=== PATIENT | male | born 1980 | race Caucasian/White ===

== ENCOUNTER → 2020-12-29 | Outpatient (CLI) | payer BC ==
--- NOTE | 2020-12-30 07:27 | US ---
EXAMINATION TYPE: US gallbladder DATE OF EXAM: 12/29/2020 COMPARISON: NONE CLINICAL HISTORY: Cholecystitis K81.9,R10.84 Generalized Abd Pain. EXAM MEASUREMENTS: Liver Length: 15.9 cm Gallbladder Wall: 0.3 cm CBD: 0.5 cm Right Kidney: 10.9 x 6.9 x 6.9 cm Pancreas: Obscured by bowel gas Liver: wnl Gallbladder: large mobile stone with shadowing, measures 2.0 cm. Evidence for sonographic Lira's sign: Yes CBD: wnl Right Kidney: No hydronephrosis or masses seen IMPRESSION: 1. Cholelithiasis with positive Lira's sign. No gallbladder wall thickening or pericholecystic flui d. Clinical consideration for acute/chronic cholecystitis is recommended. 2. The pancreas is obscured by overlying bowel gas.
== END | disposition home or self-care (01) ==
LOC: RADUSWWP 16:45
PROVIDERS: ATTEND Family Medicine
DX: K80.20 Calculus of gallbladder without cholecystitis without obstruction (principal)
CPT/HCPCS: 76705

== ENCOUNTER → 2023-09-08 | Outpatient (CLI) | payer BC ==
--- NOTE | 2023-09-08 18:51 | XR ---
EXAMINATION TYPE: XR pelvis AP view DATE OF EXAM: 09/08/2023 CLINICAL HISTORY: pain TECHNIQUE: Single view the pelvis is submitted. FINDINGS: No evidence for fracture, dislocation or bony lesion. Joint spaces are well-preserved. S I joints appear symmetric. IMPRESSION: 1. No acute fracture or dislocation seen. ICD 10 NO FRACTURE, INITIAL EVALUATION
--- NOTE | 2023-09-08 18:52 | XR ---
EXAMINATION TYPE: XR lumbar spine 2 or 3V DATE OF EXAM: 09/08/2023 CLINICAL HISTORY: pain TECHNIQUE: Three views of the lumbar spine are submitted. COMPARISON: None. FINDINGS: There are 5 lumbar type vertebral bodies identified. The lumbar spine shows satisfactory alignment w ithout evidence of acute fracture or dislocation. Vertebral body heights are within normal limits. Disc spaces are within normal limits. The overlying soft tissue appears unremarkable. IMPRESSION: No acute fracture or dislocation is seen in the lumbar spine. ICD 10 NO FRACTURE, INITIAL EVALUATION
--- NOTE | 2023-09-08 19:00 | XR ---
EXAMINATION TYPE: XR sacrum coccyx DATE OF EXAM: 09/08/2023 CLINICAL HISTORY: pain TECHNIQUE: Three views of the sacrum and coccyx are submitted. COMPARISON: None Sacral alae appear symmetric. No evidence for fracture or bony lesion. Sacroiliac joints are within normal limits. Visualized coccygeal segments are free of fracture or lesion. IMPRESSION: Normal study
--- NOTE | 2023-09-08 19:02 | XR ---
EXAMINATION TYPE: XR abdomen 1V DATE OF EXAM: 09/08/2023 COMPARISON: NONE HISTORY: Pain TECHNIQUE: Single supine KUB image of the abdomen is obtained FINDINGS: Small bowel demonstrates no evidence for dilatation or air fluid levels. Gas and fecal material is seen in non-distended colon. No convincing evidence for pneumoperitoneum. No unusual calcifications. The lung bases are clear. The osseous structures are intact. IMPRESSION: 1. Overall nonobstructive bowel gas pattern. Mild fecal stasis.
== END | disposition home or self-care (01) ==
LOC: RADXRMAIN 14:33
PROVIDERS: ATTEND Family Medicine
DX: M54.50 Low back pain, unspecified (principal); K56.41 Fecal impaction
CPT/HCPCS: 72100; 72170; 72220; 74018

== ENCOUNTER 2023-09-10 10:02 | Inpatient (IN) | payer BC ==
--- NOTE | 2023-09-10 10:45 | ED ---
General Adult HPI - General Chief complaint: GI Bleed Stated complaint: rectal bleeding/vomiting Time Seen by Provider: 09/10/23 10:20 Source: patient, RN notes reviewed, old records reviewed Mode of arrival: ambulatory Limitations: no limitations - History of Present Illness Initial comments: This is a 43-year-old male who presents to the emergency department complaining of lower back pain in the area of the coccyx. Patient states it is very tender to palpation or some bleeding in that area. Patient states he has become very nauseous lately and has been only eating very little because it upsets his stomach he thinks it secondary to the pain. Patient has any fever or chills. Patient states his primary medical care doctor gave him Keflex. Patient states he has not been getting any better and actually feels worse. Patient denies any upper abdominal pain. Patient states is a little lower abdominal discomfort but not bad. Patient denies any diarrhea recently. - Related Data Home Medications Medication Instructions Recorded Confirmed Amoxicillin/Potassium Clav 1 each PO Q12HR 08/16/14 08/18/14 [Augmentin 875-125 Tablet] Chlorhexidine Gluconate [Periogard] 15 ml PO BID 08/16/14 08/18/14 Fluticasone Propionate [Flonase] 1 spray EA NOSTRIL BID 08/16/14 08/18/14 Sodium Chloride [[place]] 104 ml NS BID 08/16/14 08/18/14 Previous Rx's Medication Instructions Recorded Omeprazole 40 mg PO AC-BRKFST #90 cap 08/24/14 Omeprazole [PriLOSEC] 40 mg PO AC-BRKFST #90 cap 08/24/14 Allergies Allergy/AdvReac Type Severity Reaction Status Date / Time No Known Allergies Allergy Verified 09/10/23 10:23 Review of Systems ROS Statement: Those systems with pertinent positive or pertinent negative responses have been documented in the HPI. ROS Other: All systems not noted in ROS Statement are negative. Past Medical History Past Medical History: No Reported History History of Any Multi-Drug Resistant Organisms: None Reported Past Surgical History: Orthopedic Surgery Additional Past Surgical History / Comment(s): ORAL SURGERY; LEFT FEMUR - MISSY Past Psychological History: No Psychological Hx Reported Smoking Status: Never smoker Past Alcohol Use History: None Reported, Occasional Past Drug Use History: None Reported - Past Family History Mother Family Medical History: Unable to Obtain General Exam - General Exam Comments Initial Comments: GENERAL: Patient is well-developed and well-nourished. Patient is nontoxic and well- hydrated and is in moderate distress. ENT: Neck is soft and supple. No significant lymphadenopathy is noted. Oropharynx is clear. Moist mucous membranes. Neck has full range of motion without eliciting any pain. EYES: The sclera were anicteric and conjunctiva were pink and moist. Extraocular movements were intact and pupils were equal round and reactive to light. Eyelids were unremarkable. PULMONARY: Unlabored respirations. Good breath sounds bilaterally. No audible rales rhonchi or wheezing was noted. CARDIOVASCULAR: There is a regular rate and rhythm without any murmurs gallops or rubs. ABDOMEN: Soft and nontender with normal bowel sounds. Mild suprapubic abdominal pain RECTAL: On rectal exam. Patient has a perirectal abscess that is draining profusely are a is very tender and mildly erythematous SKIN: Skin is clear with no lesions or rashes and otherwise unremarkable. NEUROLOGIC: Patient is alert and oriented x3. Cranial nerves II through XII are grossly intact. Motor and sensory are also intact. Normal speech, volume and content. Symmetrical smile. MUSCULOSKELETAL: Normal extremities with adequate strength and full range of motion. LYMPHATICS: No significant lymphadenopathy is noted PSYCHIATRIC: Normal psychiatric evaluation. Limitations: no limitations Course Vital Signs 09/10/23 09/10/23 10:17 10:39 Temperature 98.2 F Pulse Rate 96 92 Respiratory 18 20 Rate Blood Pressure 128/91 131/76 O2 Sat by Pulse 98 96 Oximetry Medical Decision Making - Medical Decision Making Was pt. sent in by a medical professional or institution (, [facility], [employer], urgent care, hospital, or fci...) When possible be specific @ -No Did you speak to anyone other than the patient for history (EMS, parent, family, police, friend...)? What history was obtained from this source @ -No Did you review nursing and triage notes (agree or disagree)? Why? @ -I reviewed and agree with nursing and triage notes Were old charts reviewed (outside hosp., previous admission, EMS record, old EKG, old radiological studies, urgent care reports/EKG's, fci records)? Report findings @ -No old charts were reviewed Differential Diagnosis (chest pain, altered mental status, abdominal pain women, abdominal pain men, vaginal bleeding, weakness, fever, dyspnea, syncope, headache, dizziness, GI bleed, back pain, seizure, CVA, palpatations, mental health, musculoskeletal)? @ -Perirectal abscess, cellulitis, coccyx fracture, pilonidal cyst, pilonidal abscess, this is not an all-inclusive list EKG interpreted by me (3pts min.). @ -As above X-rays interpreted by me (1pt min.). @ -None done CT interpreted by me (1pt min.). @ -CT scan showed an area of abscess measuring 5 x 3 cm U/S interpreted by me (1pt. min.). @ -None done What testing was considered but not performed or refused? (CT, X-rays, U/S, labs)? Why? @ -None What meds were considered but not given or refused? Why? @ -None Did you discuss the management of the patient with other professionals (professionals i.e. , PA, [employer], lab, RT, psych nurse, social media job titles, quality control assistant, teacher, strike warfare/missile systems officer, casework supervisor)? Give summary @ -I spoke with Dr. Tovar he agreed admit the patient admitted the patient really getting worse Was smoking cessation discussed for >3mins.? @ -No Was critical care preformed (if so, how long)? @ -No Were there social determinants of health that impacted care today? How? (Homelessness, low income, unemployed, alcoholism, drug addiction, transportation, low edu. Level, literacy, decrease access to med. care, residential, rehab)? @ -No Was there de-escalation of care discussed even if they declined (Discuss DNR or withdrawal of care, Hospice)? DNR status @ -No What co-morbidities impacted this encounter? (DM, HTN, Smoking, COPD, CAD, Cancer, CVA, ARF, Chemo, Hep., AIDS, mental health diagnosis, sleep apnea, mor bid obesity)? @ -None Was patient admitted / discharged? Hospital course, mention meds given and rou te, prescriptions, significant lab abnormalities, going to OR and other pertinent info. @ -Patient came to the emergency department with a slightly draining abscess in the pilonidal area. I drained a copious amount of pus from that area and I took cultures. I started the patient on Unasyn. I spoke with Dr. Tovar and he agreed to admit the patient admitted the patient motivating worse Undiagnosed new problem with uncertain prognosis? @ -No Drug Therapy requiring intensive monitoring for toxicity (Heparin, Nitro, Insulin, Cardizem)? @ -No Were any procedures done? @ -No Diagnosis/symptom? @ -Pilonidal abscess Acute, or Chronic, or Acute on Chronic? @ -Acute Uncomplicated (without systemic symptoms) or Complicated (systemic symptoms)? @ -Complicated Side effects of treatment? @ -No Exacerbation, Progression, or Severe Exacerbation? @ -No Poses a threat to life or bodily function? How? (Chest pain, [place], [place], pneumonia, PE, COPD, DKA, ARF, appy, cholecystitis, CVA, Diverticulitis, Homicidal, Suicidal, threat to staff... and all critical care pts) @ -Yes this can lead to further infection sepsis and endorgan dysfunction - Lab Data Result diagrams: 09/10/23 10:48 09/10/23 10:48 Lab Results 09/10/23 09/10/23 Range/Units 10:48 10:48 WBC 9.2 (3.8-10.6) k/uL RBC 4.59 (4.30-5.90) m/uL Hgb 14.5 (13.0-17.5) gm/dL Hct 42.8 (39.0-53.0) % MCV 93.3 (80.0-100.0) fL MCH 31.5 (25.0-35.0) pg MCHC 33.8 (31.0-37.0) g/dL RDW 11.9 (11.5-15.5) % Plt Count 199 (150-450) k/uL MPV 8.0 Neutrophils % 80 % Lymphocytes % 10 % Monocytes % 6 % Eosinophils % 2 % Basophils % 1 % Neutrophils # 7.4 (1.3-7.7) k/uL Lymphocytes # 0.9 L (1.0-4.8) k/uL Monocytes # 0.6 (0-1.0) k/uL Eosinophils # 0.2 (0-0.7) k/uL Basophils # 0.0 (0-0.2) k/uL Sodium 136 L (137-145) mmol/L Potassium 3.7 (3.5-5.1) mmol/L Chloride 102 (98-107) mmol/L Carbon Dioxide 21 L (22-30) mmol/L Anion Gap 13 mmol/L BUN 17 (9-20) mg/dL Creatinine 0.51 L (0.66-1.25) mg/dL Est GFR (CKD-EPI)AfAm >90 (>60 ml/min/1.73 sqM) Est GFR (CKD-EPI)NonAf >90 (>60 ml/min/1.73 sqM) Glucose 86 (74-99) mg/dL Calcium 9.0 (8.4-10.2) mg/dL Total Bilirubin 0.5 (0.2-1.3) mg/dL AST 22 (17-59) U/L ALT 13 (4-49) U/L Alkaline Phosphatase 69 (38-126) U/L Total Protein 6.9 (6.3-8.2) g/dL Albumin 3.6 (3.5-5.0) g/dL Disposition Clinical Impression: Pilonidal abscess Disposition: ADMITTED IP TO THIS HOSP Referrals: Sebastián Merrill DO [Primary Care Provider] - 1-2 days Time of Disposition: 12:52
[2023-09-10] MEDS: SODIUM CHLORIDE 0.9% 500 ML 500 ML IV ONE (11:27)
[2023-09-10] MEDS: SODIUM CHLORIDE 0.9% 1,000 ML IV ONE ×2 (11:27→15:10)
[2023-09-10] MEDS: KETOROLAC 15 MG/ML 1 ML VIAL IVP STA (11:27)
[2023-09-10] MEDS: HYDROmorphone 0.5 MG/0.5 ML SYRINGE IVP STA (11:27)
[2023-09-10] MEDS: AMPICILLIN-SULBACTAM 3 GM in SODIUM CHLORIDE 0.9% 100 ML IVPB STA (11:28)
[2023-09-10 11:49] LABS: Basophils % (A) 1 %; Eosinophils # (A) 0.2 k/uL (0-0.7); Eosinophils % (A) 2 %; HCT 42.8 % (39.0-53.0); HGB 14.5 gm/dL (13.0-17.5); Lymphocytes # (A) 0.9 k/uL (1.0-4.8); Lymphocytes % (A) 10 %; MCH 31.5 pg (25.0-35.0); MCHC 33.8 g/dL (31.0-37.0); MCV 93.3 fL (80.0-100.0); Monocytes # (A) 0.6 k/uL (0-1.0); Monocytes % (A) 6 %; Neutrophils # (A) 7.4 k/uL (1.3-7.7); Neutrophils % (A) 80 %; Platelet Count 199 k/uL (150-450); RBC 4.59 m/uL (4.30-5.90); RDW 11.9 % (11.5-15.5); WBC 9.2 k/uL (3.8-10.6)
[2023-09-10 12:17] LABS: ALT 13 U/L (4-49); AST 22 U/L (17-59); African American GFR (CKD) >90 (>60 ml/min/1.73 sqM); Albumin 3.6 g/dL (3.5-5.0); Alkaline Phosphatase 69 U/L (38-126); Anion Gap 13 mmol/L; Blood Urea Nitrogen 17 mg/dL (9-20); Carbon Dioxide 21 mmol/L (22-30); Chloride 102 mmol/L (98-107); Glucose 86 mg/dL (74-99); Non-African American GFR(CKD) >90 (>60 ml/min/1.73 sqM); Potassium 3.7 mmol/L (3.5-5.1); Sodium 136 mmol/L (137-145); Total Bilirubin 0.5 mg/dL (0.2-1.3); Total Protein 6.9 g/dL (6.3-8.2)
--- NOTE | 2023-09-10 12:28 | CT ---
EXAMINATION TYPE: CT pelvis w con DATE OF EXAM: 09/10/2023 COMPARISON: None HISTORY: Abscess, rectal bleeding CT DLP: 1095.8 mGycm Automated exposure control for dose reduction was used. CONTRAST: Performed with IV Contrast, patient injected with 100 ml mL of Isovue 300.Contrast enhanced CT of the pelvis was performed. FINDINGS: Adjacent to the coccygeal segments is a phlegmonous area measuring 4.9 x 3.1 cm. No evidence for drai nable abscess at this time. There is subcutaneous edema compatible with cellulitis. No bone destructi on seen. No evidence of perirectal abscess at this time. No additional phlegmonous area is seen. With in the pelvis no evidence for mass or adenopathy. Fluid. Normal-appearing prostate. No inflammatory c hange of the visualized colon or small bowel. IMPRESSION: Adjacent to the coccygeal segments is a phlegmonous area measuring 4.9 x 3.1 cm. No evidence for drai nable abscess at this time. There is subcutaneous edema compatible with cellulitis. No bone destructi on seen.
[2023-09-10] MEDS ORDERED: ACETAMINOPHEN TAB 325 MG TAB PO PRN (16:32)
[2023-09-10] MEDS: ONDANSETRON 4 MG/2 ML VIAL IVP PRN (17:51)
[2023-09-10] MEDS: AMPICILLIN-SULBACTAM 3 GM in SODIUM CHLORIDE 0.9% 100 ML IVPB SCH (18:16)
[2023-09-11] MEDS: HYDROcodone/APAP 5-325MG 1 EACH TAB PO PRN (11:35)
--- NOTE | 2023-09-11 12:11 | P.GSHP ---
History of Present Illness H&P Date: 09/11/23 CHIEF COMPLAINT: Pain and swelling at the coccyx area HISTORY OF PRESENT ILLNESS: This is a 43-year-old male who reports a month ago he fell on his tailbone and since then he had increased pain, difficulty with walking and swelling in the area. The swelling and pain have worsened over the last week. He went to see his PCP they prescribed Keflex. Patient had no improvement in his discomfort. He reports having chills decreased appetite with vomiting. Patient has evidence of a pilonidal cyst. There has been some drainage from the area. He reports the drainage was initially bloody. Patient reports still having pain rated about a 5 out of 10. Patient had a pelvic CT scan that reported adjacent to the coccygeal segment is a phlegmonous area measuring 4.9 x 3.1 cm. No evidence for drainable abscess. There is subcutaneous edema compatible with cellulitis. No bone destruction seen. He reports having chills. Denies any fevers. Patient denies any prior history of a pilonidal cyst. Denies any history of diabetes. PAST MEDICAL HISTORY: See below PAST SURGICAL HISTORY: See below MEDICATIONS: See below ALLERGIES: See below SOCIAL HISTORY: No illicit drug use. REVIEW OF SYSTEMS: CONSTITUTIONAL: Denies fever or chills. HEENT: Denies blurred vision, vision changes, or eye pain. Denies hemoptysis CARDIOVASCULAR: Denies chest pain or pressure. RESPIRATORY: No shortness of breath. GASTROINTESTINAL: See HPI for pertinent findings HEMATOLOGIC: Denies bleeding disorders. GENITOURINARY: Denies any blood in urine or increased urinary frequency. SKIN: Denies pruitis. Denies rash. PHYSICAL EXAM: VITAL SIGNS: Reviewed GENERAL: Well-developed in no acute distress. HEENT: No sclera icterus. Extraocular movements grossly intact. Moist buccal mucosa. Head is atraumatic, normocephalic. No nasal drainage. ABDOMEN: Soft. Nondistended. Nontender NEUROLOGIC: Alert and oriented. Cranial nerves II through XII grossly intact. Buttocks: In the cleft of the buttocks patient has a small fluctuant area noted just left to the crease of the buttocks. Mild erythema. Purulent bloody drainage noted on bandage. Left buttocks induration noted LABORATORY DATA: WC 9.2 Hgb 14.5 platelets 199 Sodium 136 potassium 3.7 creatinine 0.51 IMAGING: CT scan as stated above ASSESSMENT: 1. Pilonidal cyst PLAN: -Patient scheduled for incision and drainage of pilonidal cyst today with Dr. Tovar -Keep patient NPO -Continue antibiotics -Continue supportive care Physician Catalytic Case Operator note has been reviewed by physician. Signing provider agrees with the documented findings, assessment, and plan of care. I have personally seen and examined the patient, reviewed the SIGN BUILDER SUPERVISOR /PAs history, exam and MDM and agree with the assessment and plan as written. Based on total visit time, I have performed more than 50% of the visit. As above: On exam patient has a pilonidal abscess. Will proceed with incision and drainage pilonidal abscess at this time. Anticipate patient being discharged tomorrow. Follow-up as outpatient. Past Medical History Past Medical History: No Reported History History of Any Multi-Drug Resistant Organisms: None Reported Past Surgical History: Orthopedic Surgery Additional Past Surgical History / Comment(s): ORAL SURGERY; LEFT FEMUR - MISSY Past Anesthesia/Blood Transfusion Reactions: No Reported Reaction Past Psychological History: No Psychological Hx Reported Smoking Status: Never smoker Past Alcohol Use History: None Reported, Occasional Past Drug Use History: None Reported - Past Family History Mother History Unknown: Yes Family Medical History: Thyroid Disorder Medications and Allergies Home Medications Medication Instructions Recorded Confirmed Type Cephalexin [Keflex] 500 mg PO Q12HR 09/10/23 09/10/23 History Allergies Allergy/AdvReac Type Severity Reaction Status Date / Time No Known Allergies Allergy Verified 09/10/23 15:58 Surgical - Exam Vital Signs Pulse Resp BP Pulse Ox 96 18 128/91 98 09/10/23 10:17 09/10/23 10:17 09/10/23 10:17 09/10/23 10:17 Results - Labs 09/10/23 10:48 09/10/23 10:48 Abnormal Lab Results - Last 24 Hours (Table) 09/10/23 09/10/23 Range/Units 10:48 10:48 Lymphocytes # 0.9 L (1.0-4.8) k/uL Sodium 136 L (137-145) mmol/L Carbon Dioxide 21 L (22-30) mmol/L Creatinine 0.51 L (0.66-1.25) mg/dL Diabetes panel 09/10/23 Range/Units 10:48 Sodium 136 L (137-145) mmol/L Potassium 3.7 (3.5-5.1) mmol/L Chloride 102 (98-107) mmol/L Carbon Dioxide 21 L (22-30) mmol/L BUN 17 (9-20) mg/dL Creatinine 0.51 L (0.66-1.25) mg/dL Glucose 86 (74-99) mg/dL Calcium 9.0 (8.4-10.2) mg/dL AST 22 (17-59) U/L ALT 13 (4-49) U/L Alkaline Phosphatase 69 (38-126) U/L Total Protein 6.9 (6.3-8.2) g/dL Albumin 3.6 (3.5-5.0) g/dL Calcium panel 09/10/23 Range/Units 10:48 Calcium 9.0 (8.4-10.2) mg/dL Albumin 3.6 (3.5-5.0) g/dL Pituitary panel 09/10/23 Range/Units 10:48 Sodium 136 L (137-145) mmol/L Potassium 3.7 (3.5-5.1) mmol/L Chloride 102 (98-107) mmol/L Carbon Dioxide 21 L (22-30) mmol/L BUN 17 (9-20) mg/dL Creatinine 0.51 L (0.66-1.25) mg/dL Glucose 86 (74-99) mg/dL Calcium 9.0 (8.4-10.2) mg/dL Adrenal panel 09/10/23 Range/Units 10:48 Sodium 136 L (137-145) mmol/L Potassium 3.7 (3.5-5.1) mmol/L Chloride 102 (98-107) mmol/L Carbon Dioxide 21 L (22-30) mmol/L BUN 17 (9-20) mg/dL Creatinine 0.51 L (0.66-1.25) mg/dL Glucose 86 (74-99) mg/dL Calcium 9.0 (8.4-10.2) mg/dL Total Bilirubin 0.5 (0.2-1.3) mg/dL AST 22 (17-59) U/L ALT 13 (4-49) U/L Alkaline Phosphatase 69 (38-126) U/L Total Protein 6.9 (6.3-8.2) g/dL Albumin 3.6 (3.5-5.0) g/dL
[2023-09-11] MEDS: IV FLUID CONTINUATION 1,000 ML IV ONE (15:01)
[2023-09-11] MEDS: fentaNYL (PF) 50 MCG/1 ML VIAL IVP ONE ×2 (15:01→15:15)
[2023-09-11] MEDS: LACTATED RINGERS 1,000 ML IV ONE ×2 (15:01→15:22)
[2023-09-11] MEDS: ONDANSETRON 4 MG/2 ML VIAL IVP ONE (15:05)
[2023-09-11] MEDS: DEXAMETHASONE SOD PHOSPHATE 4 MG/ML 1 ML VIAL IVP ONE (15:05)
[2023-09-11] MEDS ORDERED: KETOROLAC 30 MG/ML 1 ML VIAL ONE (15:11)
[2023-09-11] MEDS ORDERED: fentaNYL (PF) 50 MCG/ML 2 ML AMP ONE (15:11)
[2023-09-11] MEDS ORDERED: ePHEDrine 50 MG/ML 1 ML VIAL ONE (15:11)
[2023-09-11] MEDS ORDERED: MIDAZOLAM 2 MG/2 ML VIAL ONE (15:11)
[2023-09-11] MEDS ORDERED: PROPOFOL 10 MG/ML 20 ML VIAL IV ONE (15:11)
[2023-09-11] MEDS ORDERED: SUCCINYLCHOLINE CHLORIDE 200 MG/10 ML VIAL IV ONE (15:11)
[2023-09-11] MEDS ORDERED: LIDOCAINE 1% INJ 10MG/ML (20 ML MDV) ONE (15:11)
[2023-09-11] MEDS: BUPIVACAINE (PF) 0.25% 10 ML VIAL SQ ONE (15:37)
--- NOTE | 2023-09-11 15:52 | P.OP ---
Date of Procedure: 09/11/23 Procedure(s) Performed: PREOPERATIVE DIAGNOSIS: Pilonidal abscess POSTOPERATIVE DIAGNOSIS: Same PROCEDURE: Incision and drainage pilonidal abscess SURGEON: La EBL: 25 cc ANESTHESIA: General COMPLICATIONS: None OPERATIVE PROCEDURE: Patient placed under general anesthesia then placed in the left cubitus position. The pilonidal region was prepped and draped sterilely. A vertical incision was made just to the left of the midline using the scalpel. This measured 1.5 to 2 cm in length. Entrance into a subcutaneous abscess cavity took place. Abscess cavity measured 5 x 3 cm. Cultures were taken. Area irrigated with saline. Wound was then packed with 1/2 inch iodophor gauze. Sterile outer dressings applied. DISPOSITION: Stable to recovery room
[2023-09-11] MEDS: HYDROmorphone 0.5 MG/0.5 ML SYRINGE IVP ONE (16:46)
[2023-09-11] MEDS: droPERidol 5 MG/2 ML VIAL IVP ONE (16:59)
[2023-09-12] MEDS: HYDROmorphone 1 MG/ML 1 ML SYRINGE IVP PRN (08:11)
[2023-09-12] MEDS: DEXAMETHASONE SOD PHOSPHATE 4 MG/ML 1 ML VIAL IVP SCH (14:31)
[2023-09-12] MEDS: PANTOPRAZOLE 40 MG/10 ML VIAL IVP SCH (14:31)
[2023-09-12] MEDS: SODIUM CHLORIDE 0.9% 1,000 ML IV SCH (14:32)
[2023-09-12] MEDS: SUCRALFATE 1 GM TAB PO SCH (14:32)
[2023-09-12 15:27] LABS: HCT 39.1 % (39.0-53.0); MCH 31.1 pg (25.0-35.0); MCHC 33.3 g/dL (31.0-37.0); MCV 93.4 fL (80.0-100.0); Mean Platelet Volume 7.7; Platelet Count 204 k/uL (150-450); RBC 4.19 m/uL (4.30-5.90); RDW 11.7 % (11.5-15.5); WBC 8.1 k/uL (3.8-10.6)
--- NOTE | 2023-09-12 15:52 | XR ---
EXAMINATION TYPE: XR abdomen 2V DATE OF EXAM: 09/12/2023 COMPARISON: 09/08/2023 HISTORY: Vomiting TECHNIQUE: One view abdominal series FINDINGS: The osseous structures are intact. The bowel gas pattern is nonspecific. Surgical clips right upper quadrant. There is an air-fluid level. Retained debris throughout the colon correlate for constipatio n. Lung bases are clear. Left hemidiaphragm elevation. IMPRESSION: 1. Nonspecific abdomen. Correlate for constipation. Single air-fluid level in the upper abdomen is n onspecific could be associated with an ileus or enteritis. Partial obstruction felt less likely, joseluis elate clinically.
[2023-09-12] MEDS: chlorproMAZINE 25 MG/ML 2 ML AMP IM ONE (16:11)
--- NOTE | 2023-09-12 16:17 | P.CONS ---
History of Present Illness - Reason for Consult Consult date: 09/12/23 Medical management Requesting physician: Qasim Tovar - Chief Complaint Status post fall, increased coccyx pain - History of Present Illness This is a 43-year-old gentleman presented to the ER status post fall approximately 1 month ago ,complaining of coccyx edema and pain, affecting his ambulation . Placed on oral Keflex per PCP, developed nausea and vomiting. Denies diarrhea. Pain and edema worsened, along with chills and decreased appetite, prompting him to proceed to the ER. Presented with evidence of a draining pilonidal cyst. Pelvic CT completed, reported adjacent to the coccygeal segment is a phlegmonous area measuring 4.9 x 3.1 cm. No evidence for drainable abscess. There is subcutaneous edema compatible with cellulitis. No bone destruction seen. IV fluid hydration, antibiotics were initiated. evaluated by general surgery and underwent I&D yesterday. Afebrile, normal WBC. Function stable Review of Systems ROS Statement: Those systems with pertinent positive or pertinent negative responses have been documented in the HPI. ROS Other: All systems not noted in ROS Statement are negative. Past Medical History Past Medical History: No Reported History History of Any Multi-Drug Resistant Organisms: None Reported Past Surgical History: Orthopedic Surgery Additional Past Surgical History / Comment(s): ORAL SURGERY; LEFT FEMUR - MISSY Past Anesthesia/Blood Transfusion Reactions: No Reported Reaction Past Psychological History: No Psychological Hx Reported Smoking Status: Never smoker Past Alcohol Use History: None Reported, Occasional Past Drug Use History: None Reported - Past Family History Mother History Unknown: Yes Family Medical History: Thyroid Disorder Medications and Allergies Home Medications Medication Instructions Recorded Confirmed Type Cephalexin [Keflex] 500 mg PO Q12HR 09/10/23 09/10/23 History Allergies Allergy/AdvReac Type Severity Reaction Status Date / Time No Known Allergies Allergy Verified 09/10/23 15:58 Physical Exam Vitals: Vital Signs Temp Pulse Pulse Resp BP Pulse Ox 09/12/23 14:22 98.0 F 91 18 116/80 97 09/12/23 07:00 98.1 F 71 20 139/78 99 09/12/23 02:51 98.2 F 61 16 115/73 97 09/11/23 20:06 97.5 F L 94 15 120/84 96 09/11/23 18:28 74 117/79 96 09/11/23 18:13 82 126/88 97 09/11/23 17:58 82 135/88 100 09/11/23 17:43 97.6 F 76 16 116/75 99 09/11/23 17:02 87 18 119/76 95 09/11/23 16:47 83 14 118/76 93 L 09/11/23 16:32 92 20 102/58 98 09/11/23 16:17 92 14 135/68 98 09/11/23 16:02 97.3 F L 95 18 140/76 100 Intake and Output 09/12/23 09/12/23 09/12/23 06:59 14:59 22:59 Intake Total 618 Balance 618 Intake: Oral 618 Other: Voiding Method Toilet # Voids 2 2 PHYSICAL EXAM: VITAL SIGNS: [As above] GENERAL: Sitting up in bed, no acute distress, anxious HEENT: Normocephalic, atraumatic conjunctivae normal. eyes normal. NECK: Supple, no JVD. No thyroid enlargement. No LNs CARDIOVASCULAR: S1, S2 regular.. No murmur RESPIRATION: Unlabored, equal air entry breath sounds diminished in the bases. No rhonchi or crackles. No bronchial breathing. ABDOMEN: Soft, nontender . No guarding. no masses palpable. No guarding, no rigidity bowel sounds heard. LEGS: No edema. no swelling PSYCHIATRY: Alert and oriented X3, mood and affect normal. NERVOUS SYSTEM: Cranial N 2-12 grossly normal. No focal deficits. Strength and sensation grossly intact.. Skin: Warm and dry, coccyx dressing clean dry and intact, tender, status post I&D. Results CBC & Chem 7: 09/12/23 14:53 09/10/23 10:48 Labs: Abnormal Lab Results - Last 24 Hours (Table) 09/12/23 Range/Units 14:53 RBC 4.19 L (4.30-5.90) m/uL Microbiology - Last 24 Hours (Table) 09/10/23 10:48 Blood Culture - Preliminary Blood 09/10/23 10:48 Gram Stain - Preliminary Rectum Wound Culture - Preliminary Gram Neg Bacilli Assessment and Plan Assessment: Pilonidal abscess, aerobic wound culture of 09/10/2023 reporting gram-negative bacilli, status post I&D, deep cultures obtained. Obesity, BMI 30 Plan: Continue on current medication regimen ,monitoring and symptomatic treatment. Thorazine added for intractable nausea and vomiting. PPI, Carafate, Zofran in place. Wound care/pain management, DVT prophylaxis as per primary. Blood, aerobic and anaerobic wound cultures in progress, with initial wound culture currently reporting gram-negative bacilli. Continue on antibiotics. Increase ambulation as tolerated. Thank you for the consult. The impression and plan of care has been dictated as directed. : I performed a history and examination of this patient, discussed the same with the dictator. I agree with the dictator's note ,documented as a scribe. Any additional findings or plans will be noted.
--- NOTE | 2023-09-12 16:33 | P.PN ---
Subjective Progress Note Date: 09/12/23 CHIEF COMPLAINT: Pilonidal abscess HISTORY OF PRESENT ILLNESS: Patient is postop day #1 status post incision and drainage of pilonidal abscess. Patient reports that decrease pressure and pain. He has had some drainage in the area. Patient has had multiple episodes of vomiting. The emesis did have blood and evidence of old blood. And then it became coffee-ground emesis. He reports having an episode of vomiting yesterday evening as well. He reports hiccups. Patient reports having an episode of blood in his emesis at home. Last EGD was in 2015. Afebrile. WBC 8.1 hemoglobin 13 platelets 204. Vital stable PHYSICAL EXAM: VITAL SIGNS: Reviewed. GENERAL: Well-developed in no acute distress. ABDOMEN: Soft. Nondistended. NEUROLOGIC: Alert and oriented. Cranial nerves II through XII grossly intact. Buttocks: Packing in place. Some serosanguineous, purulent drainage noted on bandage. Erythema on the left buttocks decreasing. Area of induration decreasing ASSESSMENT: 1. Pilonidal abscess status post incision and drainage 2. Coffee-ground emesis PLAN: -Downgrade diet to n.p.o. -Check abdominal x-ray due to vomiting and constipation -Patient scheduled for EGD on with Dr. Tovar -Start IV Protonix twice a day -Add Carafate 1 g twice a day -Scheduled Decadron ordered for vomiting -Continue antibiotics -Patient can shower -Continue local wound care with Aquacel silver rope Physician Motor Grader Operator note has been reviewed by physician. Signing provider agrees with the documented findings, assessment, and plan of care. I have personally seen and examined the patient, reviewed the EDGE KITTER /PAs history, exam and MDM and agree with the assessment and plan as written. Based on total visit time, I have performed more than 50% of the visit. As above: Patient has had episodes of nausea and vomiting. Some evidence of blood in the emesis. Feels better currently. Continue antiacid therapy. Likely will proceed with upper endoscopy during this hospital stay. Begin dress ing changes. Continue antibiotics. Follow cultures. Objective - Vital Signs Vital signs: Vital Signs Temp 98.1 F 09/12/23 07:00 Pulse 71 09/12/23 07:00 Resp 20 09/12/23 07:00 BP 139/78 09/12/23 07:00 Pulse Ox 99 09/12/23 07:00 FiO2 Intake & Output 09/11/23 09/12/23 09/12/23 18:59 06:59 18:59 Intake Total 800 618 Output Total 25 Balance 775 618 Intake: IV 800 Oral 618 Output: Emesis 0 Estimated Blood Loss 25 Other: Voiding Method Toilet Toilet Toilet # Voids 2 - Labs CBC & Chem 7: 09/12/23 14:53 09/10/23 10:48 Labs: Microbiology - Last 24 Hours (Table) 09/10/23 10:48 Blood Culture - Preliminary Blood 09/10/23 10:48 Gram Stain - Preliminary Rectum Wound Culture - Preliminary Gram Neg Bacilli
[2023-09-12] MEDS ORDERED: SUCRALFATE 1 GM TAB PO SCH (17:30)
[2023-09-13 08:47] LABS: HCT 38.8 % (39.6-50.0); HGB 12.8 g/dL (13.0-17.0); MCV 91.1 FL (80.0-97.0); Mean Platelet Volume 10.3 FL (9.5-12.2); NRBC Per 100 WBC 0 X 10*3/uL (0.00-0.01); Platelet Count 244 X 10*3/uL (140-440); RBC 4.26 X 10*6/uL (4.40-5.60); RDW 11.7 % (11.5-14.5); WBC 6.84 X 10*3/uL (4.50-10.00)
[2023-09-13] MEDS ORDERED: DEXTROSE 50% SYRINGE 50 ML IVP PRN ×2 (09:08)
[2023-09-13 09:21] LABS: Blood Urea Nitrogen 8.4 mg/dL (9.0-27.0); Calcium 8.6 mg/dL (8.7-10.3); Chloride 102 mmol/L (96-109); Glucose 115 mg/dL (70-110); Potassium 4.2 mmol/L (3.5-5.5); Sodium 138 mmol/L (135-145)
--- NOTE | 2023-09-13 09:30 | P.PN ---
Subjective Progress Note Date: 09/13/23 History of Present Illness 09/12/23 This is a 43-year-old gentleman presented to the ER status post fall approximately 1 month ago ,complaining of coccyx edema and pain, affecting his ambulation . Placed on oral Keflex per PCP, developed nausea and vomiting. Denies diarrhea. Pain and edema worsened, along with chills and decreased appetite, prompting him to proceed to the ER. Presented with evidence of a draining pilonidal cyst. Pelvic CT completed, reported adjacent to the coccygeal segment is a phlegmonous area measuring 4.9 x 3.1 cm. No evidence for drainable abscess. There is subcutaneous edema compatible with cellulitis. No bone destruction seen. IV fluid hydration, antibiotics were initiated. evaluated by general surgery and underwent I&D yesterday. Afebrile, normal WBC. Function stable 09/13/2023 Currently maintained on IV fluid hydration ,Unasyn. Wound culture collected on 09/10 finalized last night, reporting Klebsiella pneumonia, E. coli/ESBL, Enterococcus faecalis. ID consulted. Wound culture collected on reporting gram-negative bacilli. Afebrile, normal WBC. Denies chest pain, palpitations or shortness of breath. Maintaining O2 sats in the high 90s to 100% on room air. Yesterday having intractable nausea and vomiting, hiccups- Thoraz ine added to med regimen. He later had coffee-ground emesis. Maintained on IV Protonix, Carafate. Abdominal x-ray completed yesterday reported nonspecific abdomen, correlate for constipation, single air-fluid level in the upper abdomen nonspecific could be associated with an ileus or enteritis partial obstruction felt less likely .Passing flatus this morning, reports last bowel movement Monday. Nausea improved with no further emesis since this later in the afternoon yesterday, scheduled for EGD . No tachycardia, hemoglobin 12.8, platelets 244. Continues on IV push Decadron. Reports decreased pain. Objective - Vital Signs Vital signs: Vital Signs Temp 97.4 F L 09/13/23 07:24 Pulse 57 L 09/13/23 07:24 Resp 20 09/13/23 07:24 BP 117/75 09/13/23 07:24 Pulse Ox 100 09/13/23 07:24 FiO2 Intake & Output 09/12/23 09/13/2309/13/24 18:59 06:59 18:59 Intake Total 618 Balance 618 Intake: Oral 618 Other: Voiding Method Toilet Toilet # Voids 2 3 - Exam PHYSICAL EXAM: VITAL SIGNS: [As above] GENERAL: Alert and oriented x 3, sitting up in bed, no acute distress HEENT: Normocephalic, atraumatic conjunctivae normal. NECK: Supple, no JVD. CARDIOVASCULAR: S1, S2 regular.. No murmur RESPIRATION: Unlabored, equal air entry breath sounds diminished in the bases. No rhonchi or crackles. No bronchial breathing. ABDOMEN: Soft, nondistended, nontender . No guarding. no masses palpable. No guarding, no rigidity bowel sounds heard. LEGS: No edema. no swelling NERVOUS SYSTEM: Cranial N 2-12 grossly normal. No focal deficits. Strength and sensation grossly intact. Skin: Warm and dry, coccyx dressing serosanguineous, mild erythema surrounding, tender, status post I&D. Microbiology 09/10/23 10:48 Blood Blood Culture - Preliminary 09/11/23 15:41 Other - Other Gram Stain - Preliminary 09/11/23 15:41 Other - Other Wound Culture - Preliminary Gram Neg Bacilli 09/10/23 10:48 Rectum Gram Stain - Final 09/10/23 10:48 Rectum Wound Culture - Final Klebsiella pneumoniae Escherichia coli Enterococcus faecalis - Labs CBC & Chem 7: 09/13/23 06:09 09/13/23 06:09 Labs: Abnormal Lab Results - Last 24 Hours (Table) 09/12/23 Range/Units 14:53 RBC 4.19 L (4.30-5.90) m/uL Microbiology - Last 24 Hours (Table) 09/10/23 10:48 Blood Culture - Preliminary Blood 09/11/23 15:41 Gram Stain - Preliminary Other - Other Wound Culture - Preliminary Gram Neg Bacilli 09/10/23 10:48 Gram Stain - Final Rectum Wound Culture - Final Klebsiella pneumoniae Escherichia coli Enterococcus faecalis Assessment and Plan Assessment: Pilonidal abscess, aerobic wound culture of 09/10/2023 reporting reporting Klebsiella pneumonia, E. coli/ESBL, Enterococcus faecalis. 09/11/2023 reporting gram-negative bacilli, status post I&D Coffee-ground emesis Constipation Possible ileus or enteritis reported per x-ray Obesity, BMI 30 Plan: Continue on current medication regimen ,monitoring and symptomatic treatment. Infectious disease consulted regarding antibiotics regimen. Dulcolax suppository ordered. Wound care as per general surgery. maintained on dexamethasone, NovoLog sliding scale ordered, close monitoring of Accu-Cheks.EGD scheduled for . The impression and plan of care has been dictated as directed. : I performed a history and examination of this patient, discussed the same with the dictator. I agree with the dictator's note ,documented as a scribe. Any additional findings or plans will be noted.
[2023-09-13] MEDS: ERTAPENEM 1 GM in SODIUM CHLORIDE 0.9% 50 ML IVPB SCH (12:11)
[2023-09-13 13:16] LABS: Glucose,Whole Blood 83 mg/dL (70-110)
--- NOTE | 2023-09-13 15:47 | P.PN ---
Subjective Progress Note Date: 09/13/23 CHIEF COMPLAINT: Pilonidal abscess HISTORY OF PRESENT ILLNESS: Patient is postop day #2 status post incision and drainage of pilonidal abscess. Patient reports less pain and pressure at the abscess site. He did shower and packing was changed. He had multiple episodes of vomiting yesterday. No further vomiting since 5 PM. The emesis yesterday did have some coffee-ground consistency. Last BM was Monday. He is having flatus. Afebrile. Vital stable. Hemoglobin stable 12.8 culture with ESBL infe ctious disease has been consulted. Abdominal x-ray nonspecific. Correlate for constipation. Single air-fluid level in the upper abdomen is nonspecific could be associated with ileus or enteritis. PHYSICAL EXAM: VITAL SIGNS: Reviewed. GENERAL: Well-developed in no acute distress. ABDOMEN: Soft. Nondistended. NEUROLOGIC: Alert and oriented. Cranial nerves II through XII grossly intact. Buttocks: Packing in place. Some serosanguineous, purulent drainage noted on bandage. Erythema on the left buttocks decreasing. Area of induration decreasing ASSESSMENT: 1. Pilonidal abscess status post incision and drainage 2. Coffee-ground emesis 3. Constipation PLAN: -Patient scheduled for EGD tomorrow with Dr. Tovar -Continue local wound care -Keep patient n.p.o. -Continue IV Protonix, Carafate and Decadron -Antibiotics per ID service -Continue IV fluids -Dulcolax suppository ordered Physician Acoustical Material Worker note has been reviewed by physician. Signing provider agrees with the documented findings, assessment, and plan of care. Objective - Vital Signs Vital signs: Vital Signs Temp 97.7 F 09/13/23 14:00 Pulse 76 09/13/23 14:00 Resp 20 09/13/23 14:00 BP 114/71 09/13/23 14:00 Pulse Ox 98 09/13/23 14:00 FiO2 Intake & Output 09/12/23 09/13/23 09/13/23 18:59 06:59 18:59 Intake Total 618 Balance 618 Intake: Oral 618 Other: Voiding Method Toilet Toilet Toilet # Voids 2 3 - Labs CBC & Chem 7: 09/13/23 06:09 09/13/23 06:09 Labs: Abnormal Lab Results - Last 24 Hours (Table) 09/13/23 09/13/23 Range/Units 06:09 06:09 RBC 4.26 L (4.40-5.60) X 10*6/uL Hgb 12.8 L (13.0-17.0) g/dL Hct 38.8 L (39.6-50.0) % Anion Gap 13.00 H (4.00-12.00) mmol/L BUN 8.4 L (9.0-27.0) mg/dL Creatinine 0.4 L (0.6-1.5) mg/dL BUN/Creatinine Ratio 21.00 H (12.00-20.00) Ratio Glucose 115 H (70-110) mg/dL Calcium 8.6 L (8.7-10.3) mg/dL Microbiology - Last 24 Hours (Table) 09/10/23 10:48 Blood Culture - Preliminary Blood 09/11/23 15:41 Gram Stain - Preliminary Other - Other Wound Culture - Preliminary Gram Neg Bacilli 09/10/23 10:48 Gram Stain - Final Rectum Wound Culture - Final Klebsiella pneumoniae Escherichia coli Enterococcus faecalis
[2023-09-13] MEDS: INSULIN ASPART (NovoLOG) 100 UNIT/ML VIAL SQ SCH (16:14)
[2023-09-13] MEDS: chlorproMAZINE 25 MG TAB PO PRN (17:15)
[2023-09-13] MEDS: bisacodyL 10 MG SUPP RECTAL STA (17:16)
[2023-09-13 18:59] LABS: Glucose,Whole Blood 112 mg/dL (70-110)
[2023-09-13 21:31] LABS: Glucose,Whole Blood 109 mg/dL (70-110)
--- NOTE | 2023-09-13 21:40 | P.CONS ---
History of Present Illness - Reason for Consult Consult date: 09/13/23 Wound culture, ESBL Requesting physician: Kimberly Ely - Chief Complaint Lower back pain x few days - History of Present Illness Patient is a 43-year-old male with no significant past medical history presenting to the ER 3 days ago for evaluation of lower back pain in the area of the coccyx patient symptom has been going on for few days denies any history of any trauma patient was complaining of pain to be more of a sharp and throbbing moderate intensity without radiation and the patient noticed to be able to be tender and did have some bleeding from it patient was also complaining of feeling nauseated not tolerating his diet but no vomiting and some epigastric discomfort but no diarrhea patient was evaluated by general surgery has been diagnosed with a pilonidal abscess in this patient with status post incision and drainage of the pilonidal abscess on 09/11/2023 patient has been treated with Zosyn culture growing we will get finalized with ESBL E. coli in addition to Klebsiella Enterococcus faecalis that has prompted this infectious disease consu ltation, patient currently denies having any fever or any chills and the patient denies any fever or presentation to the hospital denies any headache or URI symptoms no chest pain shortness of breath or cough did have some nausea and tolerating his diet no significant vomiting or diarrhea pain to the sacral area slightly decreased intensity. Patient did have white count of 9.2 creatinine 0.4 electrolytes are normal liver enzymes are normal., Cultures are positive for ESBL E. coli Klebsiella Ent erococcus faecalis Review of Systems Positive point and negatives has been mentioned in the HPI, complete review of systems was performed and all other systems are negative Past Medical History Past Medical History: No Reported History History of Any Multi-Drug Resistant Organisms: None Reported Past Surgical History: Orthopedic Surgery Additional Past Surgical History / Comment(s): ORAL SURGERY; LEFT FEMUR - MISSY Past Anesthesia/Blood Transfusion Reactions: No Reported Reaction Past Psychological History: No Psychological Hx Reported Smoking Status: Never smoker Past Alcohol Use History: None Reported, Occasional Past Drug Use History: None Reported - Past Family History Mother History Unknown: Yes Family Medical History: Thyroid Disorder Medications and Allergies Home Medications Medication Instructions Recorded Confirmed Type Ertapenem [INVanz] 1 gm IVPB Q24H #14 each 09/18/23 09/21/23 Rx HYDROcodone/APAP 5-325MG [Perley 1 tab PO Q6HR PRN 3 Days #12 tab 09/18/23 09/21/23 Rx 5-325] Baclofen [Lioresal] 5 mg PO TID 09/21/23 09/21/23 History Gabapentin [Neurontin] 300 mg PO TID PRN 09/21/23 09/21/23 History Ondansetron Odt [Zofran Odt] 4 mg PO TID 09/21/23 09/21/23 History Pantoprazole [Protonix] 40 mg PO DIRECTED 09/21/23 09/21/23 History Allergies Allergy/AdvReac Type Severity Reaction Status Date / Time No Known Allergies Allergy Verified 09/21/23 13:13 Physical Exam Vitals: Vital Signs Temp Pulse Resp BP Pulse Ox 09/13/23 07:24 97.4 F L 57 L 20 117/75 100 09/13/23 02:47 97.8 F 67 15 123/65 97 09/12/23 20:19 98.0 F 76 15 122/75 99 09/12/23 14:22 98.0 F 91 18 116/80 97 Intake and Output 09/12/23 09/13/23 09/13/23 22:59 06:59 14:59 Other: Voiding Method Toilet # Voids 1 3 GENERAL DESCRIPTION: Middle-aged male lying in bed, no distress. No tachypnea or accessory muscle of respiration use. HEENT: Shows Pallor , no scleral icterus. Oral mucous membrane is dry. No pharyngeal erythema or thrush NECK: Trachea central, no thyromegaly. LUNGS: Unlabored breathing. Clear to auscultation anteriorly. No wheeze or crackle. HEART: S1, S2, regular rate and rhythm. No loud murmur ABDOMEN: Soft, no tenderness , guarding or rigidity, no organomegaly EXTREMITIES: No edema of feet. SKIN: Patient did have a surgical wound to the sacral area with no slough tissue or any foul-smelling drainage NEUROLOGICAL: The patient is awake, alert, oriented x3, mood and affect normal. Results CBC & Chem 7: 09/17/23 06:48 09/17/23 06:48 Labs: Abnormal Lab Results - Last 24 Hours (Table) 09/12/23 09/13/23 09/13/23 Range/Units 14:53 06:09 06:09 RBC 4.19 L 4.26 L (4.30-5.90) m/uL Hgb 12.8 L (13.0-17.0) g/dL Hct 38.8 L (39.6-50.0) % Anion Gap 13.00 H (4.00-12.00) mmol/L BUN 8.4 L (9.0-27.0) mg/dL Creatinine 0.4 L (0.6-1.5) mg/dL BUN/Creatinine Ratio 21.00 H (12.00-20.00) Ratio Glucose 115 H (70-110) mg/dL Calcium 8.6 L (8.7-10.3) mg/dL Microbiology - Last 24 Hours (Table) 09/10/23 10:48 Blood Culture - Preliminary Blood 09/11/23 15:41 Gram Stain - Preliminary Other - Other Wound Culture - Preliminary Gram Neg Bacilli 09/10/23 10:48 Gram Stain - Final Rectum Wound Culture - Final Klebsiella pneumoniae Escherichia coli Enterococcus faecalis Assessment and Plan (1) Infection due to ESBL-producing Escherichia coli Status: Acute Code(s): A49.8 - OTHER BACTERIAL INFECTIONS OF UNSPECIFIED SITE; Z16.12 - EXTENDED SPECTRUM BETA LACTAMASE (ESBL) RESISTANCE SNOMED Code(s): 914520353 (2) Pilonidal abscess Status: Acute Code(s): L05.01 - PILONIDAL CYST WITH ABSCESS SNOMED Code(s): 910745327 Plan: 1patient presented hospital with pain to the lower back area and this patient has been diagnosed with a pilonidal cyst s/p I&D culture positive for ESBL E. coli Klebsiella and Enterococcus faecalis 2-Zosyn has been discontinued 3-patient started on Invanz 1 g daily 4-patient will need midline and a short course of IV Invanz on discharge We will follow on clinical condition and cultures to further adjust medication if needed Thank you for this consultation we will follow the patient along with you Dictation was produced using [employer] dictation software. please excuse any grammatical, word or spelling errors. Time with Patient: Greater than 30
[2023-09-14 02:06] LABS: Glucose,Whole Blood 107 mg/dL (70-110)
[2023-09-14 11:43] LABS: Basophils # (A) 0.01 X 10*3/uL (0.00-0.10); Basophils % (A) 0.1 %; Eosinophils # (A) 0 X 10*3/uL (0.04-0.35); Eosinophils % (A) 0 %; HCT 39.3 % (39.6-50.0); Lymphocytes # (A) 0.91 X 10*3/uL (0.90-5.00); Lymphocytes % (A) 10.1 %; MCH 30.2 pg (27.0-32.0); MCHC 33.1 g/dL (32.0-37.0); MCV 91.4 FL (80.0-97.0); Mean Platelet Volume 10.1 FL (9.5-12.2); Monocytes # (A) 0.32 X 10*3/uL (0.20-1.00); Monocytes % (A) 3.6 %; NRBC Per 100 WBC 0 X 10*3/uL (0.00-0.01); Neutrophils # (A) 7.69 X 10*3/uL (1.80-7.70); Neutrophils % (A) 85.8 %; Platelet Count 253 X 10*3/uL (140-440); RDW 11.9 % (11.5-14.5); WBC 8.97 X 10*3/uL (4.50-10.00)
--- NOTE | 2023-09-14 11:54 | P.PN ---
Subjective Progress Note Date: 09/14/23 History of Present Illness 09/12/23 This is a 43-year-old gentleman presented to the ER status post fall approximately 1 month ago ,complaining of coccyx edema and pain, affecting his ambulation . Placed on oral Keflex per PCP, developed nausea and vomiting. Denies diarrhea. Pain and edema worsened, along with chills and decreased appetite, prompting him to proceed to the ER. Presented with evidence of a draining pilonidal cyst. Pelvic CT completed, reported adjacent to the coccygeal segment is a phlegmonous area measuring 4.9 x 3.1 cm. No evidence for drainable abscess. There is subcutaneous edema compatible with cellulitis. No bone destruction seen. IV fluid hydration, antibiotics were initiated. evaluated by general surgery and underwent I&D yesterday. Afebrile, normal WBC. Function stable 09/13/2023 Currently maintained on IV fluid hydration ,Unasyn. Wound culture collected on 09/10 finalized last night, reporting Klebsiella pneumonia, E. coli/ESBL, Enterococcus faecalis. ID consulted. Wound culture collected on reporting gram-negative bacilli. Afebrile, normal WBC. Denies chest pain, palpitations or shortness of breath. Maintaining O2 sats in the high 90s to 100% on room air. Yesterday having intractable nausea and vomiting, hiccups- Thoraz ine added to med regimen. He later had coffee-ground emesis. Maintained on IV Protonix, Carafate. Abdominal x-ray completed yesterday reported nonspecific abdomen, correlate for constipation, single air-fluid level in the upper abdomen nonspecific could be associated with an ileus or enteritis partial obstruction felt less likely .Passing flatus this morning, reports last bowel movement Monday. Nausea improved with no further emesis since this later in the afternoon yesterday, scheduled for EGD . No tachycardia, hemoglobin 12.8, platelets 244. Continues on IV push Decadron. Reports decreased pain. 09/14/2023 NPO, dry heaves, no emesis, hiccups. Scheduled for EGD today. Denies chest pain, palpitations or shortness of breath. Evaluated by infectious disease with antibiotics adjusted to ertapenem secondary to ESBL. Afebrile, normal WBC. Objective - Vital Signs Vital signs: Vital Signs Temp 98.1 F 09/14/23 08:00 Pulse 60 09/14/23 08:00 Resp 16 09/14/23 08:00 BP 129/86 09/14/23 08:00 Pulse Ox 97 09/14/23 08:00 FiO2 Intake & Output 09/13/23 09/14/23 09/14/23 18:59 06:59 18:59 Other: Voiding Method Toilet Toilet # Voids 4 2 - Exam PHYSICAL EXAM: VITAL SIGNS: [As above] GENERAL: Alert and oriented x 3, sitting up in bed, no acute distress, anxious HEENT: Normocephalic, atraumatic conjunctivae normal. NECK: Supple, no JVD. CARDIOVASCULAR: S1, S2 regular.. No murmur RESPIRATION: Unlabored, equal air entry breath sounds diminished in the bases. ABDOMEN: Soft, nondistended, nontender . No guarding. no masses palpable. No guarding, no rigidity bowel sounds heard. LEGS: No edema. no swelling NERVOUS SYSTEM: Cranial N 2-12 grossly normal. No focal deficits. Strength and sensation grossly intact. Skin: Warm and dry, no rashes noted - Labs CBC & Chem 7: 09/14/23 07:34 09/13/23 06:09 Labs: Abnormal Lab Results - Last 24 Hours (Table) 09/13/23 09/14/23 Range/Units 18:57 07:34 RBC 4.30 L (4.40-5.60) X 10*6/uL Hct 39.3 L (39.6-50.0) % Eosinophils # 0 L (0.04-0.35) X 10*3/uL POC Glucose (mg/dL) 112 H (70-110) mg/dL Microbiology - Last 24 Hours (Table) 09/10/23 10:48 Blood Culture - Preliminary Blood 09/11/23 15:41 Gram Stain - Final Other - Other Wound Culture - Final Escherichia coli Assessment and Plan Assessment: Pilonidal abscess, aerobic wound culture of 09/10/2023 reporting reporting Klebsiella pneumonia, E. coli/ESBL, Enterococcus faecalis. 09/11/2023 reporting gram-negative bacilli, status post I&D Coffee-ground emesis Constipation Possible ileus or enteritis reported per x-ray Obesity, BMI 30 Plan: Continue on current medication regimen ,monitoring and symptomatic treatment. N.p.o., EGD pending .patient to receive Thorazine for hiccups.antibiotics as per infectious disease. wound care as per general surgery. The impression and plan of care has been dictated as directed. : I performed a history and examination of this patient, discussed the same with the dictator. I agree with the dictator's note ,documented as a scribe. Any additional findings or plans will be noted.
[2023-09-14 12:03] LABS: BUN/Creat Ratio 26.75 Ratio (12.00-20.00); Blood Urea Nitrogen 10.7 mg/dL (9.0-27.0); Calcium 8.7 mg/dL (8.7-10.3); Chloride 103 mmol/L (96-109); Glucose 102 mg/dL (70-110); Sodium 141 mmol/L (135-145)
[2023-09-14 12:32] LABS: Glucose,Whole Blood 86 mg/dL (70-110)
[2023-09-14] MEDS ORDERED: PROPOFOL 10 MG/ML 20 ML VIAL IV ONE (13:45)
[2023-09-14] MEDS: IV FLUID CONTINUATION 1,000 ML IV ONE (13:50)
[2023-09-14] MEDS: SODIUM CHLORIDE 0.9% 500 ML 500 ML IV ONE (14:16)
--- NOTE | 2023-09-14 15:41 | P.PN ---
Subjective Progress Note Date: 09/14/23 Principal diagnosis: Reason for follow-up is infected pilonidal cyst/abscess Patient is a 43-year-old male with no significant past medical history presenting to the ER for evaluation of lower back pain in the area of the coccyx, patient to be diagnosed with a pilonidal abscess status post surgical drainage cultures came back positive with ESBL E. coli Klebsiella Enterococcus faecalis prompting this infectious disease consultation. On today's evaluation that is 09/14/2023, the patient remains to be afebrile, patient is currently breathing comfortably on room air, the patient denies chest pain and no significant cough, patient has been complaining of some nausea decreased oral intake but no significant abdominal pain or diarrhea. Patient white count of 8.97, creatinine 0.4 Objective - Vital Signs Vital signs: Vital Signs Temp 98.1 F 09/14/23 08:00 Pulse 60 09/14/23 08:00 Resp 18 09/14/23 08:35 BP 129/86 09/14/23 08:00 Pulse Ox 97 09/14/23 08:00 FiO2 Intake & Output 09/13/23 09/14/23 09/14/23 18:59 06:59 18:59 Intake Total 300 Balance 300 Intake: IV 300 Other: Voiding Method Toilet Toilet Toilet # Voids 4 2 - Exam GENERAL DESCRIPTION: Middle-age male lying in bed in no distress RESPIRATORY SYSTEM: Unlabored breathing , decreased breath sounds at bases HEART: S1 S2 regular rate and rhythm , ABDOMEN: Soft , no tenderness EXTREMITIES: No edema feet - Labs CBC & Chem 7: 09/14/23 07:34 09/14/23 07:34 Labs: Abnormal Lab Results - Last 24 Hours (Table) 09/13/23 09/14/23 09/14/23 Range/Units 18:57 07:34 07:34 RBC 4.30 L (4.40-5.60) X 10*6/uL Hct 39.3 L (39.6-50.0) % Eosinophils # 0 L (0.04-0.35) X 10*3/uL Anion Gap 13.00 H (4.00-12.00) mmol/L Creatinine 0.4 L (0.6-1.5) mg/dL BUN/Creatinine Ratio 26.75 H (12.00-20.00) Ratio POC Glucose (mg/dL) 112 H (70-110) mg/dL Microbiology - Last 24 Hours (Table) 09/10/23 10:48 Blood Culture - Preliminary Blood 09/11/23 15:41 Gram Stain - Final Other - Other Wound Culture - Final Escherichia coli Assessment and Plan (1) Infection due to ESBL-producing Escherichia coli Current Visit: Yes Status: Acute Code(s): A49.8 - OTHER BACTERIAL INFECTIONS OF UNSPECIFIED SITE; Z16.12 - EXTENDED SPECTRUM BETA LACTAMASE (ESBL) RESISTANCE SNOMED Code(s): 742436417 (2) Pilonidal abscess Current Visit: Yes Status: Acute Code(s): L05.01 - PILONIDAL CYST WITH ABSCESS SNOMED Code(s): 276507211 Plan: 1patient presented hospital with pain to the lower back area and this patient has been diagnosed with a pilonidal cyst s/p I&D culture positive for ESBL E. coli Klebsiella and Enterococcus faecalis 2-patient to continue with Invanz 1 g daily, will order midline for outpatient IV antibiotic therapy Dictation was produced using [employer] dictation software. please excuse any gram matical, word or spelling errors. Time with Patient: Less than 30
--- NOTE | 2023-09-14 16:23 | P.PCN ---
Date of Procedure: 09/14/23 Procedure(s) Performed: Preoperative Dx: Intractable vomiting, reflux Postoperative Dx: Gastritis, small gastric polyp, moderate-sized hiatal hernia, distal esophagitis Procedure: EGD with Bx Anesthesia: Sedation Endoscopist: Dr. Tovar Specimens: Antrum, gastric polyp, distal esophagus Endoscopic Procedure: The patient was on the endoscopy table in the left decubitus position. The Olympus gastroscope was inserted into the oropharynx and passed under direct visualization to the region of the third portion of the duodenum. From that point the scope was slowly withdrawn inspecting all surfaces carefully. There were no neoplastic inflammatory or polypoid lesions throughout the duodenum. The pylorus was widely patent. The stomach was carefully inspected. There was some retained bilious fluid with some debris still present in the stomach. 200 cc was evacuated on initial insertion. A biopsy of the antrum took place to rule out H. pylori. A small polyp in the stomach was noted and biopsied. Retroflexion revealed a moderate-sized hiatal hernia. The GE junction was present 3 cm above the diaphragmatic hiatus. I would estimate 10% of the stomach was above the diaphragm. The patient's esophagus was inspected. The patient had significant reflux appearing esophagitis. Multiple biopsies were taken. The inflammation was enough that it was difficult to visualize and determine clinically if there was Gamez's esophagus. This involved the distal 8 cm or so of the esophagus. The proximal esophagus appeared normal. The patient was then taken to the recovery room in stable condition per anesthesia guidelines. Recommendations: Continue antiacid therapy. Check gastric emptying study given the patient's persistent vomiting and retained bilious liquid in the stomach. Continue antiemetics. Recommend GI evaluation when available.
[2023-09-14 17:33] LABS: Glucose,Whole Blood 125 mg/dL (70-110)
[2023-09-14 21:06] LABS: Glucose,Whole Blood 116 mg/dL (70-110)
--- NOTE | 2023-09-15 12:05 | P.PN ---
Subjective Progress Note Date: 09/15/23 History of Present Illness 09/12/23 This is a 43-year-old gentleman presented to the ER status post fall approximately 1 month ago ,complaining of coccyx edema and pain, affecting his ambulation . Placed on oral Keflex per PCP, developed nausea and vomiting. Denies diarrhea. Pain and edema worsened, along with chills and decreased appetite, prompting him to proceed to the ER. Presented with evidence of a draining pilonidal cyst. Pelvic CT completed, reported adjacent to the coccygeal segment is a phlegmonous area measuring 4.9 x 3.1 cm. No evidence for drainable abscess. There is subcutaneous edema compatible with cellulitis. No bone destruction seen. IV fluid hydration, antibiotics were initiated. evaluated by general surgery and underwent I&D yesterday. Afebrile, normal WBC. Function stable 09/13/2023 Currently maintained on IV fluid hydration ,Unasyn. Wound culture collected on 09/10 finalized last night, reporting Klebsiella pneumonia, E. coli/ESBL, Enterococcus faecalis. ID consulted. Wound culture collected on reporting gram-negative bacilli. Afebrile, normal WBC. Denies chest pain, palpitations or shortness of breath. Maintaining O2 sats in the high 90s to 100% on room air. Yesterday having intractable nausea and vomiting, hiccups- Thoraz ine added to med regimen. He later had coffee-ground emesis. Maintained on IV Protonix, Carafate. Abdominal x-ray completed yesterday reported nonspecific abdomen, correlate for constipation, single air-fluid level in the upper abdomen nonspecific could be associated with an ileus or enteritis partial obstruction felt less likely .Passing flatus this morning, reports last bowel movement Monday. Nausea improved with no further emesis since this later in the afternoon yesterday, scheduled for EGD . No tachycardia, hemoglobin 12.8, platelets 244. Continues on IV push Decadron. Reports decreased pain. 09/14/2023 NPO, dry heaves, no emesis, hiccups. Scheduled for EGD today. Denies chest pain, palpitations or shortness of breath. Evaluated by infectious disease with antibiotics adjusted to ertapenem secondary to ESBL. Afebrile, normal WBC. 09/15/2023 underwent EGD yesterday reporting gastritis, small gastric polyp, moderate size hiatal hernia, distal esophagitis. Maintained on antiacid and antiemetics, upper GI ordered. Continues on ertapenem as per ID. Afebrile. Objective - Vital Signs Vital signs: Vital Signs Temp 97.4 F L 09/15/23 08:00 Pulse 62 09/15/23 08:00 Resp 14 09/15/23 08:00 BP 125/73 09/15/23 08:00 Pulse Ox 99 09/15/23 08:00 FiO2 Intake & Output 09/14/23 09/15/23 09/15/23 18:59 06:59 18:59 Intake Total 300 Balance 300 Intake: IV 300 Other: Voiding Method Toilet Toilet Toilet # Voids 1 2 - Exam PHYSICAL EXAM: VITAL SIGNS: [As above] GENERAL: Alert and oriented x 3, sitting up in bed, no acute distress HEENT: Normocephalic, atraumatic conjunctivae normal. NECK: Supple, no JVD. CARDIOVASCULAR: S1, S2 regular.No murmur RESPIRATION: Unlabored, equal air entry breath sounds diminished in the bases. ABDOMEN: Soft, nondistended, nontender . No guarding. no masses palpable. No guarding, no rigidity,+BS LEGS: No edema. no swelling NERVOUS SYSTEM: Cranial N 2-12 grossly normal. No focal deficits. Strength and sensation grossly intact. Skin: Warm and dry, no rashes noted - Labs CBC & Chem 7: 09/14/23 07:34 09/14/23 07:34 Labs: Abnormal Lab Results - Last 24 Hours (Table) 09/14/23 09/14/23 09/14/23 Range/Units 07:34 17:31 21:04 Anion Gap 13.00 H (4.00-12.00) mmol/L Creatinine 0.4 L (0.6-1.5) mg/dL BUN/Creatinine Ratio 26.75 H (12.00-20.00) Ratio POC Glucose (mg/dL) 125 H 116 H (70-110) mg/dL Microbiology - Last 24 Hours (Table) 09/11/23 15:41 Anaerobic Culture - Final Other - Other Anaerobic Gm Negative Bacilli Assessment and Plan Assessment: Pilonidal abscess, aerobic wound culture of 09/10/2023 reporting reporting Klebsiella pneumonia, E. coli/ESBL, Enterococcus faecalis. 09/11/2023 reporting gram-negative bacilli, status post I&D Coffee-ground emesis, status post EGD reporting gastritis, small gastric polyp, moderate size hiatal hernia, distal esophagitis. Upper GI pending. Constipation Possible ileus or enteritis reported per x-ray Obesity, BMI 30 Plan: Continue on current medication regimen ,monitoring and symptomatic treatment. Upper GI pending .antibiotics as per infectious disease. wound care as per general surgery. General surgery recommending GI follow-up outpatient. The impression and plan of care has been dictated as directed. : I performed a history and examination of this patient, discussed the same with the dictator. I agree with the dictator's note ,documented as a scribe. Any additional findings or plans will be noted.
--- NOTE | 2023-09-15 12:23 | P.PN ---
Subjective Progress Note Date: 09/15/23 CHIEF COMPLAINT: Pilonidal abscess HISTORY OF PRESENT ILLNESS: Status post EGD revealing gastritis, small gastric polyp, moderate size hiatal hernia and distal esophagitis. Patient is postop day #3 status post incision and drainage of pilonidal abscess. Patient reports no pain or pressure currently at his buttocks. His main complaint is hiccups. He also will spit up with the hiccups. No vomiting. Reports no bowel movement. Does have discomfort across the epigastric area. Afebrile. PHYSICAL EXAM: VITAL SIGNS: Reviewed. GENERAL: Well-developed in no acute distress. ABDOMEN: Soft. Nondistended. NEUROLOGIC: Alert and oriented. Cranial nerves II through XII grossly intact. Buttocks: Packing fell out. minimal serosanguineous, purulent drainage noted on bandage. No erythema. Area is soft. ASSESSMENT: 1. Pilonidal abscess status post incision and drainage 2. Coffee-ground emesis status post EGD revealing gastritis, small gastric polyp, moderate size hiatal hernia and distal esophagitis 3. Hiccups PLAN: -Consult neuro for intractable hiccups -Upper GI ordered for further evaluation of patient's vomiting -Continue local wound care for the pilonidal abscess -Antibiotics per ID service -Okay to start regular diet after upper GI Physician Vice Provost note has been reviewed by physician. Signing provider agrees with the documented findings, assessment, and plan of care. Objective - Vital Signs Vital signs: Vital Signs Temp 97.4 F L 09/15/23 08:00 Pulse 62 09/15/23 08:00 Resp 14 09/15/23 08:00 BP 125/73 09/15/23 08:00 Pulse Ox 99 09/15/23 08:00 FiO2 Intake & Output 09/14/23 09/15/23 09/15/23 18:59 06:59 18:59 Intake Total 300 Balance 300 Intake: IV 300 Other: Voiding Method Toilet Toilet Toilet # Voids 1 2 - Labs CBC & Chem 7: 09/14/23 07:34 09/14/23 07:34 Labs: Abnormal Lab Results - Last 24 Hours (Table) 09/14/23 09/14/23 Range/Units 17:31 21:04 POC Glucose (mg/dL) 125 H 116 H (70-110) mg/dL Microbiology - Last 24 Hours (Table) 09/11/23 15:41 Anaerobic Culture - Final Other - Other Anaerobic Gm Negative Bacilli
[2023-09-15 12:45] LABS: Glucose,Whole Blood 87 mg/dL (70-110)
--- NOTE | 2023-09-15 13:03 | FL ---
EXAMINATION TYPE: FL UGI w esophagus DATE OF EXAM: 09/15/2023 COMPARISON: NONE HISTORY: Vomiting TECHNIQUE: A double contrast UGI study is performed. A total of 2 minutes and 39 seconds of fluoros copic time was utilized during procedure and 40 images obtained. Total dose area product (DAP) in uGy *m?, mGy*cm? (or similar): Unavailable. FINDINGS: Corporate Strategy Analyst image of the abdomen shows no gross abnormality. Barium was swallowed without difficulty and passed the esophagus without delay. Mild wall thickening of the distal esophagus with extensive gastroesophageal reflux to the upper thoracic level. Small hia juanita hernia. Correlate for mild distal esophagitis. No obstruction. There was evidence of aspiration o n the final swallow of the exam. Stomach demonstrates a small hiatal hernia. There appears to be retained fluid within the stomach whi ch limits assessment of the mucosa. Difficult to exclude a small bowel Grossly no large sizable lesio n. There is mild thickening of the distal gastric antrum and proximal duodenum. Surgical clips in the gallbladder fossa. IMPRESSION: 1. Extensive gastroesophageal reflux to the upper thoracic level with small hiatal hernia. Correlate for mild distal reflux esophagitis. 2. Question mild distal gastric antral fold thickening and duodenal proximal fold thickening. Peptic ulcer disease or a gastroduodenitis in the differential diagnosis. 3. Small amount of aspiration. Consider follow-up modified barium swallow.
--- NOTE | 2023-09-15 15:37 | P.PN ---
Subjective Progress Note Date: 09/15/23 Principal diagnosis: Reason for follow-up is infected pilonidal cyst/abscess Patient is a 43-year-old male with no significant past medical history presenting to the ER for evaluation of lower back pain in the area of the coccyx, patient to be diagnosed with a pilonidal abscess status post surgical drainage cultures came back positive with ESBL E. coli Klebsiella Enterococcus faecalis prompting this infectious disease consultation. On today's evaluation that is 09/15/2023, the patient is afebrile, patient is on room air, the patient denies chest pain shortness of breath or cough, patient has been complaining of feeling nauseated did have hiccups no significant abdominal pain or any diarrhea or pain to the sacral wound area. No lab draw today Objective - Vital Signs Vital signs: Vital Signs Temp 97.4 F L 09/15/23 08:00 Pulse 62 09/15/23 08:00 Resp 14 09/15/23 08:00 BP 125/73 09/15/23 08:00 Pulse Ox 99 09/15/23 08:00 FiO2 Intake & Output 09/14/23 09/15/23 09/15/23 18:59 06:59 18:59 Intake Total 300 Balance 300 Intake: IV 300 Other: Voiding Method Toilet Toilet Toilet # Voids 1 2 - Exam GENERAL DESCRIPTION: Middle-age male lying in bed in no distress RESPIRATORY SYSTEM: Unlabored breathing , decreased breath sounds at bases HEART: S1 S2 regular rate and rhythm , ABDOMEN: Soft , no tenderness EXTREMITIES: No edema feet - Labs CBC & Chem 7: 09/14/23 07:34 09/14/23 07:34 Labs: Abnormal Lab Results - Last 24 Hours (Table) 09/14/23 09/14/23 Range/Units 17:31 21:04 POC Glucose (mg/dL) 125 H 116 H (70-110) mg/dL Microbiology - Last 24 Hours (Table) 09/11/23 15:41 Anaerobic Culture - Final Other - Other Anaerobic Gm Negative Bacilli Assessment and Plan (1) Infection due to ESBL-producing Escherichia coli Current Visit: Yes Status: Acute Code(s): A49.8 - OTHER BACTERIAL INFECTIONS OF UNSPECIFIED SITE; Z16.12 - EXTENDED SPECTRUM BETA LACTAMASE (ESBL) RESISTANCE SNOMED Code(s): 908175064 (2) Pilonidal abscess Current Visit: Yes Status: Acute Code(s): L05.01 - PILONIDAL CYST WITH ABSCESS SNOMED Code(s): 281203693 Plan: 1patient presented hospital with pain to the lower back area and this patient has been diagnosed with a pilonidal cyst s/p I&D culture positive for ESBL E. coli Klebsiella and Enterococcus faecalis 2-patient is afebrile white count normal, patient to continue with Invanz 1 g daily currently waiting for resolution of his GI symptoms Dictation was produced using [employer] dictation software. please excuse any grammatical, word or spelling errors. Time with Patient: Less than 30
--- NOTE | 2023-09-15 17:28 | P.CNNES ---
History of Present Illness Consult date: 09/15/23 Requesting physician: Qasim Tovar Reason for Consult: Intractable hiccups History of Present Illness: Patient is a 43-year-old male came to the hospital on 09/10/2023 for rectal bleeding vomiting, pain in the lower back area in the area of the coccyx. Patient was diagnosed with pilonidal abscess. Patient underwent incision and drainage of the pilonidal sinus abscess on 09/11/2023. Neurology was consulted for intractable hiccups. Patient apparently started having some low back pain for which she was seen by chiropractor. It did not help, and then he started having bleeding from the back. On 09/06/2023, he start ed throwing up frequently. Prior to that he was fine. On 09/08/2023 he was seen by his primary physician who felt patient may have hemorrhoids. He was not able to keep anything down, therefore he came to the hospital on 09/10/2023. He was diagnosed with pilonidal sinus, underwent incision and drainage of the abscess on 09/11/2023. He started having hiccups same day of surgery and has not stopped. Patient's parents were also present, and all of them provided with a history. Patient is not a very good historian. Patient's symptoms of intermittent hiccups and dry heaving started in 2014 after he underwent jaw surgery, as his roof of the mouth was too small and he required braces. After the surgery, he came here with intractable hiccups, dry heaving that lasted for straight 1 week. It was so bad that whole chest was bruised. Patient's parent states that he was seen by Dr. Sheets, who recommended him to take a deep breath and slowly take it out to reset the diaphragm. His symptoms went away and he was fine, but later the symptoms reappeared. Over years he has developed episodes of hiccups, followed by vomiting, occurring about 2-3 times per month. It usually starts with hiccups, then starts throwing up, sometimes vomits other times dry heaves. The symptoms last for about couple hours. Patient has noticed that if he eats late after 7 PM, then sometimes at night or other times the next day he starts having this episode. Patient has noticed that once he gets "one big throw up", then he is good for weeks. He had undergone cholecystectomy 2 years ago without any improvement. * CT of the pelvis with contrast, which revealed adjacent to coccygeal segment, is a phlegmonous area measuring 4.9 x 3.1 cm. No evidence for drainable abscess at this time. There is subcutaneous edema compatible with cellulitis. No bone destruction. X-ray of the abdomen showed nonspecific findings with single air-fluid level in the upper abdomen is nonspecific, could be associate d with ileus or enteritis. Partial obstruction felt less likely. Correlate clinically. * Barium swallow revealed extensive gastroesophageal reflux to the upper thoracic level with small hiatal hernia. Correlate with mild distal reflux esophagitis. Question mild distal gastric antral fold thickening and duodenal proximal fold thickening. Peptic ulcer disease or gastroduodenitis in the differential diagnosis. Small amount of aspiration. * EGD, which revealed gastritis, small gastric polyp, moderate sized hiatal hernia, distal esophagitis. Patient denies hypertension or diabetes. He drinks very occasionally, does not smoke uses marijuana or drug use. Blood test revealed normal WBC, hemoglobin 13.0, normal platelets. Electrolytes and renal functions are normal. Hemoglobin A1c 5.5. Patient denies any headache or any visual symptoms. Patient denies any history of migraines although his brother does suffer from migraines. Review of Systems Constitutional: Reports chills (gets cold), Denies fever Eyes: denies blurred vision, denies diplopia, denies pain, denies loss of peripheral vision Ears: deny: decreased hearing, ear discharge Ears, nose, mouth and throat: Denies dental pain, Denies dysphagia, Denies headache, Denies sore throat, Denies vertigo Cardiovascular: Reports chest pain (Epigastric region), Denies shortness of breath Respiratory: Reports cough, Reports excessive sputum, Denies dyspnea Gastrointestinal: Reports constipation, Reports diarrhea, Reports heartburn, Rep orts hematemesis, Reports nausea, Reports vomiting Genitourinary: Denies incontinence, Denies urinary frequency Musculoskeletal: Denies low back pain (occasional back and neck pain), Denies myalgias, Denies neck pain Integumentary: Denies pruritus, Denies rash Neurological: Reports as per HPI Psychiatric: Reports anxiety, Denies depression Endocrine: Denies fatigue, Denies weight change (normal fluctuation) Hematologic/Lymphatic: Denies easy bleeding, Denies easy bruising Past Medical History Past Medical History: No Reported History History of Any Multi-Drug Resistant Organisms: None Reported Past Surgical History: Orthopedic Surgery Additional Past Surgical History / Comment(s): ORAL SURGERY; LEFT FEMUR - MISSY Past Anesthesia/Blood Transfusion Reactions: No Reported Reaction Past Psychological History: No Psychological Hx Reported Smoking Status: Never smoker Past Alcohol Use History: None Reported, Occasional Past Drug Use History: None Reported - Past Family History Mother History Unknown: Yes Family Medical History: Thyroid Disorder Medications and Allergies Home Medications Medication Instructions Recorded Confirmed Type Cephalexin [Keflex] 500 mg PO Q12HR 09/10/23 09/10/23 History Allergies Allergy/AdvReac Type Severity Reaction Status Date / Time No Known Allergies Allergy Verified 09/10/23 15:58 Physical Examination - Vital Signs Vital Signs: Vital Signs Temp Pulse Resp BP BP Pulse Ox 09/15/23 08:00 97.4 F L 62 14 125/73 99 09/15/23 03:25 97.4 F L 50 L 15 111/66 97 09/14/23 21:23 59 L 16 09/14/23 19:18 97.4 F L 59 L 16 125/77 100 Intake and Output 09/14/23 09/15/23 09/15/23 22:59 06:59 14:59 Other: Voiding Method Toilet Toilet # Voids 1 2 Patient is a middle aged male, in no acute distress. Patient is sit ting comfortably in the recliner. Patient is frequently spitting, or mildly retching sometimes. He is frequently hiccuping. Patient appears slightly pale. Patient is alert awake oriented to time place and person. Speech and language functions are normal. Patient can name and repeat very well. No aphasia or dysarthria. Attention, concentration and fund of knowledge is adequate. On cranial nerve examination, pupils are equal, round and reacting to light, visual harrison are full on confrontation, with no neglect on double simultaneous stimulation. Extraocular muscles are intact with no nystagmus. Face is symmetric, tongue protrudes to the midline. Palatal elevation and sensation nor mal, hearing and shoulder shrug normal, facial sensation normal. On muscle strength testing, there is no pronator drift and the strength is normal in arms and legs distally and proximally. Deep tendon reflexes are symmetric 1+ at the biceps, 1+ brachioradialis, 2 at the knees, 2 ankles and plantars downgoing bilaterally. Sensory to touch is equal with no neglect on double simultaneous stimulation. Cerebellar function showed no ataxia for [id number] testing. No dysdiadochokinesia. No ataxia for [id number]-[id number] testing on either side. Tone and bulk of muscles normal. Gait deferred.. On general examination, there is no carotid bruit or murmur, S1-S2 audible. Chest is clear on consultation. Abdomen is soft nontender. No organomegaly, bowel sounds present. Peripheral pulses are present. Very minimal peripheral edema. Results - Laboratory Findings CBC and BMP: 09/14/23 07:34 09/14/23 07:34 Abnormal Lab Findings: Abnormal Labs 09/10/23 09/10/23 09/12/23 10:48 10:48 14:53 RBC 4.19 L Hgb Hct Lymphocytes # 0.9 L Eosinophils # Sodium 136 L Carbon Dioxide 21 L Anion Gap BUN Creatinine 0.51 L BUN/Creatinine Ratio Glucose POC Glucose (mg/dL) Calcium 09/13/23 09/13/23 09/13/23 06:09 06:09 18:57 RBC 4.26 L Hgb 12.8 L Hct 38.8 L Lymphocytes # Eosinophils # Sodium Carbon Dioxide Anion Gap 13.00 H BUN 8.4 L Creatinine 0.4 L BUN/Creatinine Ratio 21.00 H Glucose 115 H POC Glucose (mg/dL) 112 H Calcium 8.6 L 09/14/23 09/14/23 09/14/23 07:34 07:34 17:31 RBC 4.30 L Hgb Hct 39.3 L Lymphocytes # Eosinophils # 0 L Sodium Carbon Dioxide Anion Gap 13.00 H BUN Creatinine 0.4 L BUN/Creatinine Ratio 26.75 H Glucose POC Glucose (mg/dL) 125 H Calcium 09/14/23 21:04 RBC Hgb Hct Lymphocytes # Eosinophils # Sodium Carbon Dioxide Anion Gap BUN Creatinine BUN/Creatinine Ratio Glucose POC Glucose (mg/dL) 116 H Calcium Assessment and Plan Assessment: * Chronic, intermittent hiccups, followed by nausea vomiting, lasting for few hours, going on intermittently since 2014, after jaw surgery. Typically these episodes occurring about a few times a month. Exact cause is uncertain. Doubt central/neurological cause, more likely related to causes mentioned below. Differential diagnosis does include cyclic vomiting syndrome. * Extensive gastroesophageal reflux disease * Hiatal hernia * Gastritis/esophagitis Plan: * MRI of the brain rule out any central cause of cyclic vomiting, hiccups. * Other medical management as per IM and other specialties on board. * Neurology will follow. Thank you for the consult.
[2023-09-15 17:49] LABS: Glucose,Whole Blood 166 mg/dL (70-110)
[2023-09-15 20:09] LABS: Glucose,Whole Blood 197 mg/dL (70-110)
[2023-09-16 02:25] LABS: Glucose,Whole Blood 125 mg/dL (70-110)
[2023-09-16 08:04] LABS: Glucose,Whole Blood 107 mg/dL (70-110)
[2023-09-16 11:45] LABS: Basophils # (A) 0.03 X 10*3/uL (0.00-0.10); Basophils % (A) 0.3 %; Eosinophils # (A) 0 X 10*3/uL (0.04-0.35); Eosinophils % (A) 0 %; HCT 38.3 % (39.6-50.0); HGB 12.8 g/dL (13.0-17.0); Lymphocytes # (A) 1.23 X 10*3/uL (0.90-5.00); Lymphocytes % (A) 13.3 %; MCH 30.7 pg (27.0-32.0); MCHC 33.4 g/dL (32.0-37.0); MCV 91.8 FL (80.0-97.0); Mean Platelet Volume 10.7 FL (9.5-12.2); Monocytes # (A) 0.51 X 10*3/uL (0.20-1.00); Monocytes % (A) 5.5 %; NRBC Per 100 WBC 0 X 10*3/uL (0.00-0.01); Neutrophils # (A) 7.32 X 10*3/uL (1.80-7.70); Neutrophils % (A) 79.3 %; Platelet Count 266 X 10*3/uL (140-440); RBC 4.17 X 10*6/uL (4.40-5.60); RDW 11.9 % (11.5-14.5); WBC 9.24 X 10*3/uL (4.50-10.00)
[2023-09-16 11:54] LABS: Blood Urea Nitrogen 12.4 mg/dL (9.0-27.0); Calcium 8.8 mg/dL (8.7-10.3); Chloride 103 mmol/L (96-109); Glucose 124 mg/dL (70-110); Potassium 4.2 mmol/L (3.5-5.5); Sodium 137 mmol/L (135-145)
--- NOTE | 2023-09-16 12:16 | MR ---
MRI brain without contrast. HISTORY: Persistent hiccups and intractable vomiting COMPARISON: None. TECHNIQUE: Multiecho multiplanar images the brain were obtained without contrast. FINDINGS: On the T1-weighted sagittal images, the midline structures including the craniovertebral junction rel ationships are normal. The ventricles, basal cisterns and sulci over the convexities are within normal limits and there is n o mass effect or shift of the midline structures. No abnormal signal intensity is seen throughout the brain parenchyma. Based on the diffusion-weighted images, there is no diffusion restriction or acute ischemic event. The posterior fossa including the brainstem, fourth ventricle and cerebellar pontine angles appear no rmal. The intraorbital contents appear normal and symmetric. Visualized paranasal sinuses and mastoid air c ells are well aerated. IMPRESSION: No significant abnormality seen.
--- NOTE | 2023-09-16 13:28 | P.PN ---
Subjective Progress Note Date: 09/16/23 Principal diagnosis: Reason for follow-up is infected pilonidal cyst/abscess Patient is a 43-year-old male with no significant past medical history presenting to the ER for evaluation of lower back pain in the area of the coccyx, patient to be diagnosed with a pilonidal abscess status post surgical drainage cultures came back positive with ESBL E. coli Klebsiella Enterococcus faecalis prompting this infectious disease consultation. On today's evaluation that is 09/16/2023, the patient denies any fever or any chills, patient is breathing comfortably on room air, the patient denies chest pain shortness of breath and no significant cough, patient denies abdominal pain however still complaining of hiccups and some nausea and tolerating his food. The patient did have a white count of 9.24, creatinine 0.4 Objective - Vital Signs Vital signs: Vital Signs Temp 97.4 F L 09/16/23 07:49 Pulse 53 L 09/16/23 07:49 Resp 16 09/16/23 07:49 BP 115/76 09/16/23 07:49 Pulse Ox 97 09/16/23 07:49 FiO2 Intake & Output 09/15/23 09/16/23 09/16/23 18:59 06:59 18:59 Other: Voiding Method Toilet Toilet # Voids 4 2 - Exam GENERAL DESCRIPTION: Middle-age male lying in bed in no distress RESPIRATORY SYSTEM: Unlabored breathing , decreased breath sounds at bases HEART: S1 S2 regular rate and rhythm , ABDOMEN: Soft , no tenderness EXTREMITIES: No edema feet - Labs CBC & Chem 7: 09/16/23 06:23 09/16/23 06:23 Labs: Abnormal Lab Results - Last 24 Hours (Table) 09/15/23 09/15/23 09/16/23 Range/Units 17:47 20:07 02:22 POC Glucose (mg/dL) 166 H 197 H 125 H (70-110) mg/dL Microbiology - Last 24 Hours (Table) 09/10/23 10:48 Blood Culture - Final Blood Assessment and Plan (1) Infection due to ESBL-producing Escherichia coli Current Visit: Yes Status: Acute Code(s): A49.8 - OTHER BACTERIAL INFECTIONS OF UNSPECIFIED SITE; Z16.12 - EXTENDED SPECTRUM BETA LACTAMASE (ESBL) RESISTANCE SNOMED Code(s): 814300674 (2) Pilonidal abscess Current Visit: Yes Status: Acute Code(s): L05.01 - PILONIDAL CYST WITH ABSCESS SNOMED Code(s): 923553358 Plan: 1patient presented hospital with pain to the lower back area and this patient has been diagnosed with a pilonidal cyst s/p I&D culture positive for ESBL E. coli Klebsiella and Enterococcus faecalis 2-patient is afebrile white count has been normal patient is covered with Invanz to continue while waiting for improvement in his GI symptoms Dictation was produced using [employer] software. please excuse any grammatical, word or spelling errors. Time with Patient: Less than 30
[2023-09-16] MEDS: METOCLOPRAMIDE 5 MG/ML 2 ML VIAL IVP SCH (14:43)
[2023-09-16 15:07] LABS: Glucose,Whole Blood 156 mg/dL (70-110)
[2023-09-16] MEDS: BACLOFEN 10 MG TAB PO PRN (17:31)
[2023-09-16 20:12] LABS: Glucose,Whole Blood 138 mg/dL (70-110)
[2023-09-16] MEDS: GABAPENTIN 300 MG CAP PO SCH (20:51)
--- NOTE | 2023-09-16 23:28 | PN ---
PROGRESS NOTE DATE OF SERVICE: 09/16/2023 I am covering for Dr. Merrill. SUBJECTIVE: This 43-year-old gentleman was admitted with pilonidal abscess, had ESBL E coli and multiple organisms grown from the culture. The patient also is currently having hiccups. Neurology is following the patient closely. The patient had an MRI done, did not show acute abnormality. The patient apparently also had in 2015, similar symptoms, seen by Dr. Sheets and apparently responded to combination of gabapentin baclofen. Multiple consultants are following the patient closely. The patient has intractable severe hiccups, but no vomiting at this time according to him. The patient is able to keep some food down. PAST MEDICAL HISTORY: Reviewed. REVIEW OF SYSTEMS: A 14-point review of systems is negative except as mentioned earlier. CURRENT MEDICATIONS: Reviewed and include Decadron dose and rest of the medications noted. PHYSICAL EXAMINATION: VITAL SIGNS: Pulse 53, blood pressure 115/76, respirations 16. CHEST: Clear to auscultation. CARDIOVASCULAR SYSTEM: S1, S2. ABDOMEN: Soft, nontender. LEGS: No edema, no swelling. NERVOUS SYSTEM: Nonfocal. LABORATORY DATA: Reviewed. ASSESSMENT: 1. Status post pilonidal sinus. Incision and drainage with extended-spectrum beta- lactamase and multi-bacterial yaquelin. 2. Intractable hiccups. 3. Constipation. 4. Possible ileus and enteritis in the x-ray. 5. Anemia, mild. 6. Multiple complex medical issues. 7. History of surgery. RECOMMENDATIONS: In this 43-year-old gentleman, who presented with multiple complex medical issues, we will monitor the patient closely. I would recommend bland diet and continue with antibiotics. Closely follow with Infectious Disease for the ESBL E coli and other organisms. I discuss with Neurology. The neurologist will review the patient and consider either baclofen or gabapentin or a combination. I would recommend EKG. Prognosis guarded because of multiple complex medical issues. Discussed at length with the patient. Further recommendations to follow. MMODL / IJN: [id number] / MTDD
[2023-09-17 02:08] LABS: Glucose,Whole Blood 127 mg/dL (70-110)
[2023-09-17 08:41] LABS: Glucose,Whole Blood 119 mg/dL (70-110)
[2023-09-17 09:37] LABS: Basophils # (A) 0.03 X 10*3/uL (0.00-0.10); Basophils % (A) 0.3 %; Eosinophils # (A) 0.01 X 10*3/uL (0.04-0.35); Eosinophils % (A) 0.1 %; HCT 42.1 % (39.6-50.0); HGB 14.2 g/dL (13.0-17.0); Lymphocytes # (A) 1.59 X 10*3/uL (0.90-5.00); Lymphocytes % (A) 13.4 %; MCH 30.5 pg (27.0-32.0); MCHC 33.7 g/dL (32.0-37.0); MCV 90.5 FL (80.0-97.0); Mean Platelet Volume 10.3 FL (9.5-12.2); Monocytes # (A) 0.67 X 10*3/uL (0.20-1.00); Monocytes % (A) 5.6 %; NRBC Per 100 WBC 0 X 10*3/uL (0.00-0.01); Neutrophils # (A) 9.39 X 10*3/uL (1.80-7.70); Neutrophils % (A) 78.9 %; Platelet Count 335 X 10*3/uL (140-440); RBC 4.65 X 10*6/uL (4.40-5.60); RDW 11.9 % (11.5-14.5); WBC 11.89 X 10*3/uL (4.50-10.00)
--- NOTE | 2023-09-17 09:51 | P.PN ---
Subjective Progress Note Date: 09/16/23 Patient was seen for follow-up. Patient offers no new complaints. Patient continues to have hiccups. He has not much vomited as of today. Patient's parents were also present. No new concerns. Objective - Vital Signs Vital signs: Vital Signs Temp 96.6 F L 09/17/23 07:30 Pulse 65 09/17/23 07:30 Resp 18 09/17/23 07:30 BP 117/85 09/17/23 07:30 Pulse Ox 99 09/17/23 07:30 FiO2 Intake & Output 09/16/23 09/17/23 09/17/23 18:59 06:59 18:59 Output Total 200 Balance -200 Output: Urine 150 Emesis 50 Other: Voiding Method Toilet # Voids 3 1 - Exam Mentation normal. Examination unchanged. - Labs CBC & Chem 7: 09/17/23 06:48 09/16/23 06:23 Labs: Abnormal Lab Results - Last 24 Hours (Table) 09/16/23 09/16/23 09/16/23 Range/Units 06:23 06:23 15:06 WBC (4.50-10.00) X 10*3/uL RBC 4.17 L (4.40-5.60) X 10*6/uL Hgb 12.8 L (13.0-17.0) g/dL Hct 38.3 L (39.6-50.0) % Immature Gran # 0.15 H (0.00-0.04) X 10*3/uL Neutrophils # (1.80-7.70) X 10*3/uL Eosinophils # 0 L (0.04-0.35) X 10*3/uL Creatinine 0.4 L (0.6-1.5) mg/dL BUN/Creatinine Ratio 31.00 H (12.00-20.00) Ratio Glucose 124 H (70-110) mg/dL POC Glucose (mg/dL) 156 H (70-110) mg/dL 09/16/23 09/17/23 09/17/23 Range/Units 20:10 02:07 06:48 WBC 11.89 H (4.50-10.00) X 10*3/uL RBC (4.40-5.60) X 10*6/uL Hgb (13.0-17.0) g/dL Hct (39.6-50.0) % Immature Gran # 0.20 H (0.00-0.04) X 10*3/uL Neutrophils # 9.39 H (1.80-7.70) X 10*3/uL Eosinophils # 0.01 L (0.04-0.35) X 10*3/uL Creatinine (0.6-1.5) mg/dL BUN/Creatinine Ratio (12.00-20.00) Ratio Glucose (70-110) mg/dL POC Glucose (mg/dL) 138 H 127 H (70-110) mg/dL 09/17/23 Range/Units 08:39 WBC (4.50-10.00) X 10*3/uL RBC (4.40-5.60) X 10*6/uL Hgb (13.0-17.0) g/dL Hct (39.6-50.0) % Immature Gran # (0.00-0.04) X 10*3/uL Neutrophils # (1.80-7.70) X 10*3/uL Eosinophils # (0.04-0.35) X 10*3/uL Creatinine (0.6-1.5) mg/dL BUN/Creatinine Ratio (12.00-20.00) Ratio Glucose (70-110) mg/dL POC Glucose (mg/dL) 119 H (70-110) mg/dL Assessment and Plan Assessment: * Chronic, intermittent hiccups, followed by nausea vomiting, lasting for few hours, going on intermittently since 2014, after jaw surgery. Typically these episodes occurring about a few times a month. Exact cause is uncertain. Doubt central/neurological cause, more likely related to causes mentioned below. Differential diagnosis does include cyclic vomiting syndrome. * Extensive gastroesophageal reflux disease * Hiatal hernia * Gastritis/esophagitis Plan: * MRI of the brain revealed no acute process. I personally reviewed MRI agree with the findings. No mass in the posterior fossa. * It appears patient previously was seen by Dr. Malhotra, and combination of Neurontin and baclofen work. We will resume Neurontin 300 mg twice daily. If needed, the dose can be increased to 300 mg 3 times daily in a few days. Also start baclofen 10 mg twice daily. * Patient was informed of possible drowsiness with these medications and to watch his balance to prevent falls. Patient's parents were also present. * Other medical management as per IM and other specialties on board. * Neurologically clear for discharge. May follow-up with Dr. Sheets in outpatient.
[2023-09-17 09:54] LABS: ALT 16 U/L (10-49); AST 10 U/L (14-35); Albumin 3.7 g/dL (3.8-4.9); Albumin/Globulin Ratio 1.37 Ratio (1.60-3.17); Alkaline Phosphatase 56 U/L (41-126); Blood Urea Nitrogen 12.2 mg/dL (9.0-27.0); Calcium 8.8 mg/dL (8.7-10.3); Carbon Dioxide 25.8 mmol/L (21.6-31.8); Chloride 102 mmol/L (96-109); Globulin 2.7 g/dL (1.6-3.3); Glucose 119 mg/dL (70-110); Potassium 4.3 mmol/L (3.5-5.5); Sodium 137 mmol/L (135-145); Total Bilirubin 0.2 mg/dL (0.3-1.2); Total Protein 6.4 g/dL (6.2-8.2)
--- NOTE | 2023-09-17 11:44 | P.PN ---
Subjective Progress Note Date: 09/17/23 Patient is resting comfortably in bed. His biggest complaint is hiccups. This is being managed by the medical service. His pilonidal cyst wound is clean. He will continue receive supportive care. Objective - Vital Signs Vital signs: Vital Signs Temp 96.6 F L 09/17/23 07:30 Pulse 65 09/17/23 07:30 Resp 18 09/17/23 07:30 BP 117/85 09/17/23 07:30 Pulse Ox 99 09/17/23 07:30 FiO2 Intake & Output 09/16/23 09/17/23 09/17/23 18:59 06:59 18:59 Output Total 200 Balance -200 Output: Urine 150 Emesis 50 Other: Voiding Method Toilet # Voids 3 1 - Labs CBC & Chem 7: 09/17/23 06:48 09/17/23 06:48 Labs: Abnormal Lab Results - Last 24 Hours (Table) 09/16/23 09/16/23 09/16/23 Range/Units 06:23 06:23 15:06 WBC (4.50-10.00) X 10*3/uL RBC 4.17 L (4.40-5.60) X 10*6/uL Hgb 12.8 L (13.0-17.0) g/dL Hct 38.3 L (39.6-50.0) % Immature Gran # 0.15 H (0.00-0.04) X 10*3/uL Neutrophils # (1.80-7.70) X 10*3/uL Eosinophils # 0 L (0.04-0.35) X 10*3/uL Creatinine 0.4 L (0.6-1.5) mg/dL BUN/Creatinine Ratio 31.00 H (12.00-20.00) Ratio Glucose 124 H (70-110) mg/dL POC Glucose (mg/dL) 156 H (70-110) mg/dL Total Bilirubin (0.3-1.2) mg/dL AST (14-35) U/L Albumin (3.8-4.9) g/dL Albumin/Globulin Ratio (1.60-3.17) Ratio 09/16/23 09/17/23 09/17/23 Range/Units 20:10 02:07 06:48 WBC 11.89 H (4.50-10.00) X 10*3/uL RBC (4.40-5.60) X 10*6/uL Hgb (13.0-17.0) g/dL Hct (39.6-50.0) % Immature Gran # 0.20 H (0.00-0.04) X 10*3/uL Neutrophils # 9.39 H (1.80-7.70) X 10*3/uL Eosinophils # 0.01 L (0.04-0.35) X 10*3/uL Creatinine (0.6-1.5) mg/dL BUN/Creatinine Ratio (12.00-20.00) Ratio Glucose (70-110) mg/dL POC Glucose (mg/dL) 138 H 127 H (70-110) mg/dL Total Bilirubin (0.3-1.2) mg/dL AST (14-35) U/L Albumin (3.8-4.9) g/dL Albumin/Globulin Ratio (1.60-3.17) Ratio 09/17/23 09/17/23 Range/Units 06:48 08:39 WBC (4.50-10.00) X 10*3/uL RBC (4.40-5.60) X 10*6/uL Hgb (13.0-17.0) g/dL Hct (39.6-50.0) % Immature Gran # (0.00-0.04) X 10*3/uL Neutrophils # (1.80-7.70) X 10*3/uL Eosinophils # (0.04-0.35) X 10*3/uL Creatinine 0.5 L (0.6-1.5) mg/dL BUN/Creatinine Ratio 24.40 H (12.00-20.00) Ratio Glucose 119 H (70-110) mg/dL POC Glucose (mg/dL) 119 H (70-110) mg/dL Total Bilirubin 0.2 L (0.3-1.2) mg/dL AST 10 L (14-35) U/L Albumin 3.7 L (3.8-4.9) g/dL Albumin/Globulin Ratio 1.37 L (1.60-3.17) Ratio
--- NOTE | 2023-09-17 13:33 | P.PN ---
Subjective Progress Note Date: 09/17/23 Principal diagnosis: Reason for follow-up is infected pilonidal cyst/abscess Patient is a 43-year-old male with no significant past medical history presenting to the ER for evaluation of lower back pain in the area of the coccyx, patient to be diagnosed with a pilonidal abscess status post surgical drainage cultures came back positive with ESBL E. coli Klebsiella Enterococcus faecalis prompting this infectious disease consultation. On today's evaluation that is 09/17/2023,the patient remains to be afebrile, patient is on room air not requiring supplemental oxygen and denies any shortness of breath no chest pain or cough.Patient denies still complaining of hiccups with associated nausea but no vomiting no abdominal pain and denies pain to the sacral wound area Objective - Vital Signs Vital signs: Vital Signs Temp 96.6 F L 09/17/23 07:30 Pulse 65 09/17/23 07:30 Resp 18 09/17/23 07:30 BP 117/85 09/17/23 07:30 Pulse Ox 99 09/17/23 07:30 FiO2 Intake & Output 09/16/23 09/17/23 09/17/23 18:59 06:59 18:59 Output Total 200 Balance -200 Output: Urine 150 Emesis 50 Other: Voiding Method Toilet Toilet # Voids 3 1 - Exam GENERAL DESCRIPTION: Middle-age male lying in bed in no distress RESPIRATORY SYSTEM: Unlabored breathing , decreased breath sounds at bases HEART: S1 S2 regular rate and rhythm , ABDOMEN: Soft , no tenderness EXTREMITIES: No edema feet - Labs CBC & Chem 7: 09/17/23 06:48 09/17/23 06:48 Labs: Abnormal Lab Results - Last 24 Hours (Table) 09/16/23 09/16/23 09/17/23 Range/Units 15:06 20:10 02:07 WBC (4.50-10.00) X 10*3/uL Immature Gran # (0.00-0.04) X 10*3/uL Neutrophils # (1.80-7.70) X 10*3/uL Eosinophils # (0.04-0.35) X 10*3/uL Creatinine (0.6-1.5) mg/dL BUN/Creatinine Ratio (12.00-20.00) Ratio Glucose (70-110) mg/dL POC Glucose (mg/dL) 156 H 138 H 127 H (70-110) mg/dL Total Bilirubin (0.3-1.2) mg/dL AST (14-35) U/L Albumin (3.8-4.9) g/dL Albumin/Globulin Ratio (1.60-3.17) Ratio 09/17/23 09/17/23 09/17/23 Range/Units 06:48 06:48 08:39 WBC 11.89 H (4.50-10.00) X 10*3/uL Immature Gran # 0.20 H (0.00-0.04) X 10*3/uL Neutrophils # 9.39 H (1.80-7.70) X 10*3/uL Eosinophils # 0.01 L (0.04-0.35) X 10*3/uL Creatinine 0.5 L (0.6-1.5) mg/dL BUN/Creatinine Ratio 24.40 H (12.00-20.00) Ratio Glucose 119 H (70-110) mg/dL POC Glucose (mg/dL) 119 H (70-110) mg/dL Total Bilirubin 0.2 L (0.3-1.2) mg/dL AST 10 L (14-35) U/L Albumin 3.7 L (3.8-4.9) g/dL Albumin/Globulin Ratio 1.37 L (1.60-3.17) Ratio Assessment and Plan (1) Infection due to ESBL-producing Escherichia coli Current Visit: Yes Status: Acute Code(s): A49.8 - OTHER BACTERIAL INFECTIONS OF UNSPECIFIED SITE; Z16.12 - EXTENDED SPECTRUM BETA LACTAMASE (ESBL) RESISTANCE SNOMED Code(s): 281144052 (2) Pilonidal abscess Current Visit: Yes Status: Acute Code(s): L05.01 - PILONIDAL CYST WITH ABSCESS SNOMED Code(s): 095951181 Plan: 1patient presented hospital with pain to the lower back area and this patient has been diagnosed with a pilonidal cyst s/p I&D culture positive for ESBL E. coli Klebsiella and Enterococcus faecalis 2-patient is afebrile white count has been normal patient to continue with the Invanz and will monitor clinical course closely Dictation was produced using [employer] software. please excuse any grammatical, word or spelling errors. Time with Patient: Less than 30
[2023-09-17 14:29] LABS: Glucose,Whole Blood 157 mg/dL (70-110)
[2023-09-17] MEDS: GABAPENTIN 300 MG CAP PO SCH (17:42)
[2023-09-17 21:17] LABS: Glucose,Whole Blood 118 mg/dL (70-110)
--- NOTE | 2023-09-17 23:55 | PN ---
PROGRESS NOTE DATE OF SERVICE: 09/17/2023 I am covering for Dr. Merrill. SUBJECTIVE: This is a 43-year-old gentleman admitted after surgery, had intractable hiccups. No chest pain. No palpitations. No fever. Neurology following the patient closely. MRI did not show any acute abnormality. PHYSICAL EXAMINATION: VITAL SIGNS: Pulse 65, blood pressure n, respirations 18. CHEST: Clear to auscultation. CARDIOVASCULAR: S1, S2. ABDOMEN: Soft. NERVOUS SYSTEM: No focal deficits. LABORATORY DATA: Labs are reviewed. ASSESSMENT: 1. Status post pilonidal sinus surgery. 2. Intractable hiccups. 3. Constipation. 4. Possible ileus and enteritis in the chest x-ray. 5. Mild anemia. RECOMMENDATIONS AND DISCUSSION: Recommend to continue current management and continue symptomatic treatment, continue the medications as recommended by Neurology and closely follow, antibiotics. Dr. Merrill will follow tomorrow. MMODL / IJN: [id number] / MTDD
--- NOTE | 2023-09-18 00:38 | P.PN ---
Subjective Progress Note Date: 09/17/23 Patient was seen for follow-up. Patient offers no new complaints. Patient continues to have hiccups. He has not vomited as of today. No new concerns. Denies any side effects of medication. Objective - Vital Signs Vital signs: Vital Signs Temp 97.2 F L 09/17/23 14:00 Pulse 95 09/17/23 14:00 Resp 16 09/17/23 14:00 BP 133/91 09/17/23 14:00 Pulse Ox 99 09/17/23 14:00 FiO2 Intake & Output 09/16/23 09/17/23 09/17/23 18:59 06:59 18:59 Output Total 200 Balance -200 Output: Urine 150 Emesis 50 Other: Voiding Method Toilet Toilet # Voids 3 1 - Exam Mentation normal. Examination unchanged. - Labs CBC & Chem 7: 09/17/23 06:48 09/17/23 06:48 Labs: Abnormal Lab Results - Last 24 Hours (Table) 09/16/23 09/17/23 09/17/23 Range/Units 20:10 02:07 06:48 WBC 11.89 H (4.50-10.00) X 10*3/uL Immature Gran # 0.20 H (0.00-0.04) X 10*3/uL Neutrophils # 9.39 H (1.80-7.70) X 10*3/uL Eosinophils # 0.01 L (0.04-0.35) X 10*3/uL Creatinine (0.6-1.5) mg/dL BUN/Creatinine Ratio (12.00-20.00) Ratio Glucose (70-110) mg/dL POC Glucose (mg/dL) 138 H 127 H (70-110) mg/dL Total Bilirubin (0.3-1.2) mg/dL AST (14-35) U/L Albumin (3.8-4.9) g/dL Albumin/Globulin Ratio (1.60-3.17) Ratio 09/17/23 09/17/23 09/17/23 Range/Units 06:48 08:39 14:27 WBC (4.50-10.00) X 10*3/uL Immature Gran # (0.00-0.04) X 10*3/uL Neutrophils # (1.80-7.70) X 10*3/uL Eosinophils # (0.04-0.35) X 10*3/uL Creatinine 0.5 L (0.6-1.5) mg/dL BUN/Creatinine Ratio 24.40 H (12.00-20.00) Ratio Glucose 119 H (70-110) mg/dL POC Glucose (mg/dL) 119 H 157 H (70-110) mg/dL Total Bilirubin 0.2 L (0.3-1.2) mg/dL AST 10 L (14-35) U/L Albumin 3.7 L (3.8-4.9) g/dL Albumin/Globulin Ratio 1.37 L (1.60-3.17) Ratio Assessment and Plan Assessment: * Chronic, intermittent hiccups, followed by nausea vomiting, lasting for few hours, going on intermittently since 2014, after jaw surgery. Typically these episodes occurring about a few times a month. Exact cause is uncertain. Doubt central/neurological cause, more likely related to causes mentioned below. Differential diagnosis does include cyclic vomiting syndrome. * Extensive gastroesophageal reflux disease * Hiatal hernia * Gastritis/esophagitis Plan: * MRI of the brain revealed no acute process. I personally reviewed MRI agree with the findings. No mass in the posterior fossa. * It appears patient previously was seen by Dr. Malhotra, and combination of Neurontin and baclofen recommended by Dr. Malhotra for very well for him. We will resume Neurontin 300 mg twice daily and baclofen 10 mg twice a day. So far patient has not noticed any improvement or side effects. Increase Neurontin to 300 mg 3 times a day. * Patient was informed of possible drowsiness with these medications and to watch his balance to prevent falls. Patient's parents were also present. * Other medical management as per IM and other specialties on board. * Neurologically clear for discharge. May follow-up with Dr. Sheets in outpatient. * Dr. Pepe Mendoza to resume neurology service from the morning.
[2023-09-18 02:10] LABS: Glucose,Whole Blood 125 mg/dL (70-110)
[2023-09-18 08:15] LABS: Glucose,Whole Blood 109 mg/dL (70-110)
--- NOTE | 2023-09-18 10:49 | P.PN ---
Subjective Progress Note Date: 09/18/23 History of Present Illness 09/12/23 This is a 43-year-old gentleman presented to the ER status post fall approximately 1 month ago ,complaining of coccyx edema and pain, affecting his ambulation . Placed on oral Keflex per PCP, developed nausea and vomiting. Denies diarrhea. Pain and edema worsened, along with chills and decreased appetite, prompting him to proceed to the ER. Presented with evidence of a draining pilonidal cyst. Pelvic CT completed, reported adjacent to the coccygeal segment is a phlegmonous area measuring 4.9 x 3.1 cm. No evidence for drainable abscess. There is subcutaneous edema compatible with cellulitis. No bone destruction seen. IV fluid hydration, antibiotics were initiated. evaluated by general surgery and underwent I&D yesterday. Afebrile, normal WBC. Function stable 09/13/2023 Currently maintained on IV fluid hydration ,Unasyn. Wound culture collected on 09/10 finalized last night, reporting Klebsiella pneumonia, E. coli/ESBL, Enterococcus faecalis. ID consulted. Wound culture collected on reporting gram-negative bacilli. Afebrile, normal WBC. Denies chest pain, palpitations or shortness of breath. Maintaining O2 sats in the high 90s to 100% on room air. Yesterday having intractable nausea and vomiting, hiccups- Thoraz ine added to med regimen. He later had coffee-ground emesis. Maintained on IV Protonix, Carafate. Abdominal x-ray completed yesterday reported nonspecific abdomen, correlate for constipation, single air-fluid level in the upper abdomen nonspecific could be associated with an ileus or enteritis partial obstruction felt less likely .Passing flatus this morning, reports last bowel movement Monday. Nausea improved with no further emesis since this later in the afternoon yesterday, scheduled for EGD . No tachycardia, hemoglobin 12.8, platelets 244. Continues on IV push Decadron. Reports decreased pain. 09/14/2023 NPO, dry heaves, no emesis, hiccups. Scheduled for EGD today. Denies chest pain, palpitations or shortness of breath. Evaluated by infectious disease with antibiotics adjusted to ertapenem secondary to ESBL. Afebrile, normal WBC. 09/15/2023 underwent EGD yesterday reporting gastritis, small gastric polyp, moderate size hiatal hernia, distal esophagitis. Maintained on antiacid and antiemetics, upper GI ordered. Continues on ertapenem as per ID. Afebrile. 09/18/2023 maintained on ertapenem for ESBL E. coli and other organisms. Afebrile. Surgical biopsy /pathology pending.ambulating around in room, positive hiccups, no emesis. Evaluated and cleared by neurology. MRI reported no significant abnormality seen. denies chest pain, palpitations or shortness of breath. Maintaining O2 sats in the high 90s on room air. Denies sacral pain. Objective - Vital Signs Vital signs: Vital Signs Temp 97.7 F 09/18/23 08:00 Pulse 79 09/18/23 08:00 Resp 15 09/18/23 08:00 BP 123/84 09/18/23 08:00 Pulse Ox 96 09/18/23 08:00 FiO2 Intake & Output 09/17/23 09/18/23 09/18/23 18:59 06:59 18:59 Other: Voiding Method Toilet Toilet # Voids 5 2 # Bowel Movements 0 0 - Labs CBC & Chem 7: 09/17/23 06:48 09/17/23 06:48 Labs: Abnormal Lab Results - Last 24 Hours (Table) 09/17/23 09/17/23 09/17/23 Range/Units 06:48 06:48 08:39 WBC 11.89 H (4.50-10.00) X 10*3/uL Immature Gran # 0.20 H (0.00-0.04) X 10*3/uL Neutrophils # 9.39 H (1.80-7.70) X 10*3/uL Eosinophils # 0.01 L (0.04-0.35) X 10*3/uL Creatinine 0.5 L (0.6-1.5) mg/dL BUN/Creatinine Ratio 24.40 H (12.00-20.00) Ratio Glucose 119 H (70-110) mg/dL POC Glucose (mg/dL) 119 H (70-110) mg/dL Total Bilirubin 0.2 L (0.3-1.2) mg/dL AST 10 L (14-35) U/L Albumin 3.7 L (3.8-4.9) g/dL Albumin/Globulin Ratio 1.37 L (1.60-3.17) Ratio 09/17/23 09/17/23 09/18/23 Range/Units 14:27 21:15 02:08 WBC (4.50-10.00) X 10*3/uL Immature Gran # (0.00-0.04) X 10*3/uL Neutrophils # (1.80-7.70) X 10*3/uL Eosinophils # (0.04-0.35) X 10*3/uL Creatinine (0.6-1.5) mg/dL BUN/Creatinine Ratio (12.00-20.00) Ratio Glucose (70-110) mg/dL POC Glucose (mg/dL) 157 H 118 H 125 H (70-110) mg/dL Total Bilirubin (0.3-1.2) mg/dL AST (14-35) U/L Albumin (3.8-4.9) g/dL Albumin/Globulin Ratio (1.60-3.17) Ratio Assessment and Plan Assessment: Pilonidal abscess, aerobic wound culture of 09/10/2023 reporting reporting Klebs iella pneumonia, E. coli/ESBL, Enterococcus faecalis. 09/11/2023 reporting gram- negative bacilli, status post I&D Coffee-ground emesis, status post EGD reporting gastritis, small gastric polyp, moderate size hiatal hernia, distal esophagitis. Constipation Gastroesophageal reflux disease, extensive. Possible ileus or enteritis reported per x-ray Obesity, BMI 30 Plan: Continue on current medication regimen ,monitoring and symptomatic treatment. Continue on PPI. Antibiotics as per infectious disease. Discharge planning in progress as per general surgery .Follow-up with Dr. Merrill in 1 week. The impression and plan of care has been dictated as directed. : I performed a history and examination of this patient, discussed the same with the dictator. I agree with the dictator's note ,documented as a scribe. Any additional findings or plans will be noted.
--- NOTE | 2023-09-18 12:10 | P.PN ---
Subjective Progress Note Date: 09/18/23 Principal diagnosis: Reason for follow-up is infected pilonidal cyst/abscess Patient is a 43-year-old male with no significant past medical history presenting to the ER for evaluation of lower back pain in the area of the coccyx, patient to be diagnosed with a pilonidal abscess status post surgical drainage cultures came back positive with ESBL E. coli Klebsiella Enterococcus faecalis prompting this infectious disease consultation. On today's evaluation that is09/18/2023, the patient continues to be afebrile, the patient is on room air and breathing comfortably, the Pt denies having any chest pain or cough, the patient continued to complain of hiccups and some h eartburn but no nausea vomiting and denies pain to the sacral wound area. No new labs has been obtained today Objective - Vital Signs Vital signs: Vital Signs Temp 97.7 F 09/18/23 08:00 Pulse 79 09/18/23 08:00 Resp 15 09/18/23 08:00 BP 123/84 09/18/23 08:00 Pulse Ox 96 09/18/23 08:00 FiO2 Intake & Output 09/17/23 09/18/23 09/18/23 18:59 06:59 18:59 Other: Voiding Method Toilet Toilet # Voids 5 2 # Bowel Movements 0 0 - Exam GENERAL DESCRIPTION: Middle-age male lying in bed in no distress RESPIRATORY SYSTEM: Unlabored breathing , decreased breath sounds at bases HEART: S1 S2 regular rate and rhythm , ABDOMEN: Soft , no tenderness EXTREMITIES: No edema feet - Labs CBC & Chem 7: 09/17/23 06:48 09/17/23 06:48 Labs: Abnormal Lab Results - Last 24 Hours (Table) 09/17/23 09/17/23 09/18/23 Range/Units 14:27 21:15 02:08 POC Glucose (mg/dL) 157 H 118 H 125 H (70-110) mg/dL Assessment and Plan (1) Infection due to ESBL-producing Escherichia coli Current Visit: Yes Status: Acute Code(s): A49.8 - OTHER BACTERIAL INFECTIONS OF UNSPECIFIED SITE; Z16.12 - EXTENDED SPECTRUM BETA LACTAMASE (ESBL) RESISTANCE SNOMED Code(s): 526783349 (2) Pilonidal abscess Current Visit: Yes Status: Acute Code(s): L05.01 - PILONIDAL CYST WITH ABSCESS SNOMED Code(s): 679789871 Plan: 1patient presented hospital with pain to the lower back area and this patient has been diagnosed with a pilonidal cyst s/p I&D culture positive for ESBL E. coli Klebsiella and Enterococcus faecalis 2-patient is afebrile white count has been normal patient currently covered with Invanz 1 g daily to continue waiting for improvement in his GI symptoms question concerns were answered Dictation was produced using [employer] dictation software. please excuse any grammatical, word or spelling errors. Time with Patient: Less than 30
[2023-09-18 12:32] LABS: Glucose,Whole Blood 104 mg/dL (70-110)
--- NOTE | 2023-09-18 12:36 | P.PN ---
Subjective Progress Note Date: 09/18/23 Principal diagnosis: Pilonidal abscess Patient did fairly well over the weekend however his hiccups have persisted. Had a few episodes of vomiting. Denies pain. No pain at the pilonidal region. Objective - Vital Signs Vital signs: Vital Signs Temp 97.7 F 09/18/23 08:00 Pulse 79 09/18/23 08:00 Resp 15 09/18/23 08:00 BP 123/84 09/18/23 08:00 Pulse Ox 96 09/18/23 08:00 FiO2 Intake & Output 09/17/23 09/18/23 09/18/23 18:59 06:59 18:59 Other: Voiding Method Toilet Toilet # Voids 5 2 # Bowel Movements 0 0 - Exam Abdomen: Soft, nontender, nondistended Pilonidal wound clean, minimal tenderness, no erythema - Labs CBC & Chem 7: 09/17/23 06:48 09/17/23 06:48 Labs: Abnormal Lab Results - Last 24 Hours (Table) 09/17/23 09/17/23 09/18/23 Range/Units 14:27 21:15 02:08 POC Glucose (mg/dL) 157 H 118 H 125 H (70-110) mg/dL Assessment and Plan (1) Pilonidal abscess Narrative/Plan: 43-year-old male with pilonidal abscess. Doing well since drainage. Unfortunately has had issues with intractable vomiting and hiccups. Appreciate neurologic consult. Will consult GI. Current Visit: Yes Status: Acute Code(s): L05.01 - PILONIDAL CYST WITH ABSCESS SNOMED Code(s): 976730304
--- NOTE | 2023-09-18 14:12 | P.DS ---
Providers Date of admission: 09/12/23 07:35 Expected date of discharge: 09/19/23 Attending physician: Qasim Tovar Consults: 09/11/23 15:52 Consult Physician Routine Consulting Provider: Sebastián Merrill Consult Reason/Comments: Medical management Do you want consulting provider notified?: Yes 09/13/23 08:40 Consult Physician Routine Consulting Provider: Mynor Garcia Consult Reason/Comments: Wound cx, ESBL Do you want consulting provider notified?: Yes 09/15/23 12:19 Consult Physician Routine Consulting Provider: Reinier Benson Consult Reason/Comments: Intractable hiccups Do you want consulting provider notified?: Yes 09/18/23 12:02 Consult Physician Routine Consulting Provider: Leila Payton Consult Reason/Comments: hiccups, vomiting Do you want consulting provider notified?: Yes Primary care physician: Sebastián Merrill Hospital Course: Discharge diagnosis 1. Pilonidal abscess status post incision and drainage 2. Intractable hiccups 3. Vomiting 4. Status post EGD revealing gastritis, small gastric polyp, moderate size hiatal hernia and distal esophagitis Hospital course This is a 43-year-old male who presented to the hospital with increased pain and swelling along the coccyx area. A CT scan of the pelvis reporte adjacent to the coccygeal segment is a phlegmonous area measuring 4.9 x 3.1 cm. No evidence for drainable abscess. There is subcutaneous edema compatible with cellulitis. No bone destruction seen. Patient did have minimal drainage from the pilonidal abscess. He underwent incision and drainage. He is followed by infectious disease and will continue IV antibiotics after discharge. Patient also had vomiting and hiccups. He had an EGD completed during this admission that had revealed gastritis, small gastric polyp, moderate size hiatal hernia and distal esophagitis. Patient was placed on Protonix and Carafate and other antiemetic medications. He continued to have hiccups. He was seen by multiple consultants including medicine service, neurology service and GI service today since they were available. Medications had been adjusted. They have all cleared him for discharge. He is tolerating diet. He is afebrile. He is ambulating. Antibiotics are arranged outpatient. He will follow-up with GI service and neurology outpatient. Patient is stable for discharge. He has been cleared by all consulting physicians. Please refer to chart for any further details. Physician [employer] Worker note has been reviewed by physician. Signing provider agrees with the documented findings, assessment, and plan of care. Patient Condition at Discharge: Stable Plan - Discharge Summary Discharge Rx Participant: Yes New Discharge Prescriptions: New Ertapenem [INVanz] 1 gm IVPB Q24H #14 each Sucralfate [Carafate] 1 gm PO ACHS #56 tab Baclofen [Lioresal] 10 mg PO BID PRN 7 Days #14 tab PRN Reason: Muscle Spasm HYDROcodone/APAP 5-325MG [[place] 5-325] 1 tab PO Q6HR PRN 3 Days #12 tab PRN Reason: Pain Gabapentin [Neurontin] 300 mg PO TID 7 Days #21 cap Discontinued Cephalexin [Keflex] 500 mg PO Q12HR Discharge Medication List Baclofen [Lioresal] 10 mg PO BID PRN 7 Days #14 tab 09/18/23 [Rx] Ertapenem [INVanz] 1 gm IVPB Q24H #14 each 09/18/23 [Rx] Gabapentin [Neurontin] 300 mg PO TID 7 Days #21 cap 09/18/23 [Rx] HYDROcodone/APAP 5-325MG [[place] 5-325] 1 tab PO Q6HR PRN 3 Days #12 tab 09/18/23 [Rx] Sucralfate [Carafate] 1 gm PO ACHS #56 tab 09/18/23 [Rx] Follow up Appointment(s)/Referral(s): Thien Sheets MD [REFERRING] - 1 Week Sebastián Merrill DO [Primary Care Provider] - 3 Days Leila Payton MD [STAFF PHYSICIAN] - 09/20/23 2:30 pm [facility] [NON-STAFF] - 1 Week Mynor Garcia MD [STAFF PHYSICIAN] - 1 Week [facility] Nurse, [NON-STAFF] - 1 Week Qasim Tovar MD [Medical Doctor] - 1 Week Activity/Diet/Wound Care/Special Instructions: No driving while taking [place] No lifting over 10 pounds Shower daily. No soaking or tub baths for 2 weeks Very light activity until you are reevaluated at your follow up appointment with your surgeon Wound Care: Patient to shower with packing in place and dressing off. After showering, remove packing and repack with short segment of aquacell silver rope. Discharge Disposition: HOME SELF-CARE
--- NOTE | 2023-09-18 14:23 | P.CONS ---
History of Present Illness - Reason for Consult Consult date: 09/18/23 hiccups Requesting physician: Qasim Tovar - Chief Complaint GI bleed - History of Present Illness 43-year-old male who came in 8 days ago with complaints of pain and difficulty walking due to pain in the tailbone after he fell about a month ago. He was seen at his PCPs office prescribed Keflex had no improvement discomfort continued. Apparently patient had evidence of: Renal cyst with drainage. He had a CT scan reporting adjacent to the coccygeal segment with phlegmon minus area and he is status post I&D with general surgery. Patient then was having complaints of nausea and vomiting with coffee-ground emesis and complains of constipation. He underwent an EGD with Dr. Dunham with findings of gastritis, esophagitis and a moderate-sized hiatal hernia. He also has been complaining of hiccups since 2015 which are intermittent and occur mostly when he has episodes of vomiting. He was started on IV Protonix, Carafate, Thorazine with no improvement in symptoms. States that he hiccups all day long. It has been going on for the last 6 or 7 days now. Gastroenterology is consulted for hiccups. States he has some discomfort in the epigastric region due to his hiccups. Review of Systems REVIEW OF SYSTEMS: CARDIOPULMONARY: No chest pain or shortness of breath. Gastrointestinal:'s mild epigastric discomfort. Occasional nausea and vomiting. Intractable hiccups. No hematemesis, coffee-ground emesis. No rectal bleeding, or melena. GENITOURINARY: No dysuria or hematuria. MUSCULOSKELETAL: Reports normal range of motion.. SKIN: No rashes. No jaundice. ENDOCRINE: No chills, fevers. No excessive weight gain or loss. No polydipsia or polyuria. PSYCHIATRIC: Unremarkable. NEUROLOGY: No change in mental status. Denies dizziness, headache. ENT: Vision unremarkable. CONSTITUTIONAL: No recent weight loss. No fever, chills, night sweats. Past Medical History Past Medical History: No Reported History History of Any Multi-Drug Resistant Organisms: None Reported Past Surgical History: Orthopedic Surgery Additional Past Surgical History / Comment(s): ORAL SURGERY; LEFT FEMUR - MISSY Past Anesthesia/Blood Transfusion Reactions: No Reported Reaction Past Psychological History: No Psychological Hx Reported Smoking Status: Never smoker Past Alcohol Use History: None Reported, Occasional Past Drug Use History: None Reported - Past Family History Mother History Unknown: Yes Family Medical History: Thyroid Disorder Medications and Allergies Home Medications Medication Instructions Recorded Confirmed Type Ertapenem [INVanz] 1 gm IVPB Q24H #14 each 09/18/23 Rx Allergies Allergy/AdvReac Type Severity Reaction Status Date / Time No Known Allergies Allergy Verified 09/10/23 15:58 Physical Exam Vitals: Vital Signs Temp Pulse Resp BP BP Pulse Ox 09/18/23 08:00 97.7 F 79 15 123/84 96 09/18/23 02:07 97.9 F 55 L 16 127/81 98 09/17/23 20:03 97.2 F L 74 16 108/75 99 09/17/23 20:00 16 09/17/23 14:00 97.2 F L 95 16 133/91 99 Intake and Output 09/17/23 09/18/23 09/18/23 22:59 06:59 14:59 Other: Voiding Method Toilet # Voids 1 2 # Bowel Movements 0 General appearance: The patient is alert, oriented, appears in no acute distress. HET: Head is normocephalic and atraumatic. Conjunctiva pink. Sclera anicteric. Neck: Supple without lymphadenopathy. Trachea midline. Heart: Regular. Lungs: Equal expansion, normal respiratory effort. Abdomen: Soft, nontender, nondistended with bowel sounds. No guarding or rigidity. Skin: No rashes. No jaundice. Extremities: Normal skin color and turgor. No pedal edema. Neurological: No focal deficits. Alert and oriented x3. Results CBC & Chem 7: 09/17/23 06:48 09/17/23 06:48 Labs: Abnormal Lab Results - Last 24 Hours (Table) 09/17/23 09/17/23 09/18/23 Range/Units 14:27 21:15 02:08 POC Glucose (mg/dL) 157 H 118 H 125 H (70-110) mg/dL Comments: Upper GI reports extensive gastroesophageal reflux to the upper thoracic level with small hiatal hernia. Correlate for mild distal reflux esophagitis. Question mild distal gastric antral fold thickening and duodenal proximal fold thickening. Peptic ulcer disease or gastroduodenitis in the differential diagnosis. Small amount of aspiration. Consider follow-up modified barium swallow. Assessment and Plan (1) Hiccoughs Narrative/Plan: 43-year-old male with intractable hiccups with occasional nausea and vomiting who had presented for pilonidal cyst underwent I&D with general surgery and then started complaining of nausea and vomiting with coffee-ground emesis and subsequent hiccups. He has been started on Thorazine, Carafate, and Reglan without any improvement in hiccups. Unclear etiology at this time he did have findings GERD on his upper GI series as well as moderate size hiatal hernia with gastritis and esophagitis seen on upper endoscopy. Continue current medication regimen for now and will have patient follow-up in the office this week. Current Visit: No Status: Acute Code(s): R06.6 - HICCOUGH SNOMED Code(s): 09873922 (2) GERD (gastroesophageal reflux disease) Current Visit: Yes Status: Acute Code(s): K21.9 - GASTRO-ESOPHAGEAL REFLUX DISEASE WITHOUT ESOPHAGITIS SNOMED Code(s): 396955469 Plan: 1. Continue symptomatic and supportive care 2. Continue current medical therapy including Protonix, Carafate, Thorazine and Reglan as needed for hiccups 3. Patient is s/p EGD 4. Recommend patient follow-up with gastroenterology this w which iseek Thank you for this consultation, patient is cleared from gastroenterology for discharge. Dr. Timi Payton I agree with the dictator's note, documented as a scribe by Samira Elliott.
[2023-09-18] MEDS: LACTULOSE 20 GM/30 ML CUP PO ONE (14:42)
[2023-09-18] MEDS ORDERED: SUCRALFATE 1 GM TAB PO SCH (17:30)
[2023-09-19 06:49] VITALS: BP 126/80; PULSE 87; RESP 14; TEMP 97.6
== END 2023-09-18 15:53 | disposition home or self-care (01) | DRG 602 ==
LOC: EC 10:02 → 6NMEDSUR 12:53 → OBSVTOIN 12:53 → 6NMEDSUR 13:27 → INTOOBSV 09-12 07:35 → OBSVTOIN 09-12 07:35 → UNDODISIN 09-18 15:53
PROVIDERS: ADMIT Surgery; ATTEND Surgery
PROC: 0J990ZZ Drainage of Buttock Subcutaneous Tissue and Fascia, Open Approach (ICD-10-PCS; principal; 2023-09-11 16:55)
PROC: 0DB78ZX Excision of Stomach, Pylorus, Via Natural or Artificial Opening Endoscopic, Diagnostic (ICD-10-PCS; 2023-09-14)
PROC: 0DB38ZX Excision of Lower Esophagus, Via Natural or Artificial Opening Endoscopic, Diagnostic (ICD-10-PCS; 2023-09-14 10:30)
DX: L05.01 Pilonidal cyst with abscess (principal); K21.01 Gastro-esophageal reflux disease with esophagitis, with bleeding; K29.51 Unspecified chronic gastritis with bleeding; K56.7 Ileus, unspecified; L03.317 Cellulitis of buttock; Z16.12 Extended spectrum beta lactamase (ESBL) resistance; E66.9 Obesity, unspecified; R06.6 Hiccough; K31.7 Polyp of stomach and duodenum; K44.9 Diaphragmatic hernia without obstruction or gangrene; B96.1 Klebsiella pneumoniae [K. pneumoniae] as the cause of diseases classified elsewhere; B96.20 Unspecified Escherichia coli [E. coli] as the cause of diseases classified elsewhere; B95.2 Enterococcus as the cause of diseases classified elsewhere; K59.00 Constipation, unspecified; D64.9 Anemia, unspecified; N28.1 Cyst of kidney, acquired; R26.2 Difficulty in walking, not elsewhere classified; Z68.30 Body mass index [BMI] 30.0-30.9, adult; Z91.81 History of falling
CPT/HCPCS: 36410; 36415; 43239; 70551; 72193; 74019; 74240; 76937; 80048; 80053; 83036; 85025; 85027; 87040; 87070; 87075; 87077; 87186; 87205; 88305; 88342; 96361; 96365; 96375; 99285

== ENCOUNTER 2023-09-21 10:41 | Emergency (ER) | payer BC ==
[2023-09-21 10:53] VITALS: RESP 18
--- NOTE | 2023-09-21 11:28 | ED ---
General Adult HPI - General Chief complaint: Nausea/Vomiting/Diarrhea Stated complaint: vomiting Time Seen by Provider: 09/21/23 10:56 Source: patient Mode of arrival: ambulatory Limitations: no limitations - History of Present Illness Initial comments: Patient is a 43-year-old gentleman with multiple complaints presents to the emergency room with multiple complaints. Patient complains of persistent hiccups for the last week as well as nausea vomiting. He states he is unable to hold any fluids food or meds down. He is getting IV antibiotics through a PICC line for pilonidal abscess. Patient did see a GI specialist Dr. Payton yesterday for follow-up regarding the hiccups and nausea and vomiting. Patient was put on baclofen, Zofran ODT and Protonix however he states he is unable to hold any of it down. Patient's also complains that he has not unable to urinate since yesterday and has not had a bowel movement for 4 days. He states he is only had a bowel movement about 2 or 3 times in the last 2-3 weeks. He denies any significant abdominal pain or distention. - Related Data Home Medications Medication Instructions Recorded Confirmed Baclofen [Lioresal] 5 mg PO TID 09/21/23 09/21/23 Gabapentin [Neurontin] 300 mg PO TID PRN 09/21/23 09/21/23 Ondansetron Odt [Zofran Odt] 4 mg PO TID 09/21/23 09/21/23 Pantoprazole [Protonix] 40 mg PO DIRECTED 09/21/23 09/21/23 Previous Rx's Medication Instructions Recorded Ertapenem [INVanz] 1 gm IVPB Q24H #14 each 09/18/23 HYDROcodone/APAP 5-325MG [[place] 1 tab PO Q6HR PRN 3 Days #12 tab 09/18/23 5-325] Promethazine Suppository 25 mg RECTAL BID #12 supp 09/21/23 [Phenergan] Sucralfate [Carafate] 1 gm PO TID 7 Days #210 ml 09/21/23 chlorproMAZINE [Thorazine] 25 mg PO TID 7 Days #21 tablet 09/21/23 Allergies Allergy/AdvReac Type Severity Reaction Status Date / Time No Known Allergies Allergy Verified 09/21/23 13:13 Review of Systems ROS Statement: Those systems with pertinent positive or pertinent negative responses have been documented in the HPI. ROS Other: All systems not noted in ROS Statement are negative. Past Medical History Past Medical History: No Reported History History of Any Multi-Drug Resistant Organisms: None Reported Past Surgical History: Orthopedic Surgery Additional Past Surgical History / Comment(s): ORAL SURGERY; LEFT FEMUR - MISSY Past Anesthesia/Blood Transfusion Reactions: No Reported Reaction Past Psychological History: No Psychological Hx Reported Smoking Status: Never smoker Past Alcohol Use History: None Reported, Occasional Past Drug Use History: None Reported - Past Family History Mother History Unknown: Yes Family Medical History: Thyroid Disorder General Exam Limitations: no limitations General appearance: alert, in no apparent distress Head exam: Present: atraumatic Eye exam: Present: normal appearance, PERRL ENT exam: Present: normal exam Neck exam: Present: full ROM Respiratory exam: Present: normal lung sounds bilaterally, other (persistent hiccups noted) Cardiovascular Exam: Present: regular rate, normal rhythm GI/Abdominal exam: Present: soft. Absent: distended, tenderness, guarding, rebound Rectal exam: Present: other (pilonidal abscess packed and healing well. no surrounding erythema or warmth) exam: Present: normal inspection. Absent: urethral discharge Extremities exam: Present: full ROM Back exam: Present: full ROM. Absent: CVA tenderness (R), CVA tenderness (L) Neurological exam: Present: alert, oriented X3, CN II-XII intact Psychiatric exam: Present: normal affect, normal mood Skin exam: Present: warm, dry Course Vital Signs 09/21/23 09/21/23 10:42 16:30 Temperature 98 F 98.1 F Pulse Rate 78 82 Respiratory 18 18 Rate Blood Pressure 137/85 128/67 O2 Sat by Pulse 100 97 Oximetry - Reevaluation(s) Reevaluation #1: 09/21/23 1535 The patient is well-appearing emergency room. Does not appear clinically dehydrated. he continues to have hiccups HOWEVER feels better after the medications emergency room. I discussed lab and imaging results with patient and mother bedside. I discussed patient's symptoms are And management with attending physician Dr. Tyson in the emergency room today. I did speak with GI specialist Dr. Payton regarding the patient as she just saw him yesterday in the office. We will continue the baclofen that she had prescribed yesterday. I did discuss the patient for Zofran ODT should be getting into he vomits. We will try the liquid Carafate to see if this will help as well as the Thorazine for hiccups. The patient has a follow-up next week with Dr. Payton. We discussed signs return to the emergency room. Medical Decision Making - Medical Decision Making Was pt. sent in by a medical professional or institution (, [facility], [facility]ER, urgent care, hospital, or [place] [facility] facility...) When possible be specific @ -[No] Did you speak to anyone other than the patient for history (EMS, parent, family, police, friend...)? What history was obtained from this source @ -Mother at bedside Did you review nursing and triage notes (agree or disagree)? Why? @ -[I reviewed and agree with nursing and triage notes] Were old charts reviewed (outside hosp., previous admission, EMS record, old EKG, old radiological studies, urgent care reports/EKG's, [place] health [facility] facility records)? Report findings @ -Yes old charts reviewed including last weeks ER and hospital admission and surgical reports Differential Diagnosis (chest pain, altered mental status, abdominal pain women, abdominal pain men, vaginal bleeding, weakness, fever, dyspnea, syncope, headache, dizziness, GI bleed, back pain, seizure, CVA, palpatations, mental health, musculoskeletal)? @ -Chronic hiccups, GERD, cyclic vomiting, dehydration EKG interpreted by me (3pts min.). @ -[As above] X-rays interpreted by me (1pt min.). @ -[KUB is negative for any signs of obstruction significant constipation, kidney stones or other acute changes CT interpreted by me (1pt min.). @ -[None done] U/S interpreted by me (1pt. min.). @ -[None done] What testing was considered but not performed or refused? (CT, X-rays, U/S, labs)? Why? @ -[None] What meds were considered but not given or refused? Why? @ -[None] Did you discuss the management of the patient with other professionals (professionals i.e. , KRISTIE, NUT SHELLER, lab, RT, psych nurse, sexual assault social worker, fence laborer, teacher, banking services officer, housing case manager)? Give summary @ -[Discussed the patient's symptoms workup and management with his GI speciali st Dr. Payton today. Dr. Payton recommended the patient continue the baclofen as tolerated and increase hydration. She agreed with attempting the Thorazine, even though she has better results with the baclofen. She will see the patient in the office next week.] Was smoking cessation discussed for >3mins.? @ -[No] Was critical care preformed (if so, how long)? @ -[No] Were there social determinants of health that impacted care today? How? (Homelessness, low income, unemployed, alcoholism, drug addiction, transportation, low edu. Level, literacy, decrease access to med. care, skilled nursing, rehab)? @ -[No] Was there de-escalation of care discussed even if they declined (Discuss DNR or withdrawal of care, Hospice)? DNR status @ -[No] What co-morbidities impacted this encounter? (DM, HTN, Smoking, COPD, CAD, Cancer, CVA, ARF, Chemo, Hep., AIDS, mental health diagnosis, sleep apnea, morbid obesity)? @ -[None] Was patient admitted / discharged? Hospital course, mention meds given and route, prescriptions, significant lab abnormalities, going to OR and other pertinent info. @ -[Patient is well-appearing in the emergency room. He is feeling better with the medications given in the emergency room today as well as the IV fluids. His hiccups may have slightly improved however has not resolved. He'll continue attempting the Thorazine at home and will try a liquid Carafate as well.] Undiagnosed new problem with uncertain prognosis? @ -[No] Drug Therapy requiring intensive monitoring for toxicity (Heparin, Nitro, Insulin, Cardizem)? @ -[No] Were any procedures done? @ -[No] Diagnosis/symptom? @ -persistent hiccups, vomiting, mild dehydration, suspected gerd vs esophageal spasms Acute, or Chronic, or Acute on Chronic? @ -[acute Uncomplicated (without systemic symptoms) or Complicated (systemic symptoms)? @ -[complicated Side effects of treatment? @ -[No] Exacerbation, Progression, or Severe Exacerbation? @ -exacerbation Poses a threat to life or bodily function? How? (Chest pain, [place], [place], pneumonia, PE, COPD, DKA, ARF, appy, cholecystitis, CVA, Diverticulitis, Homicidal, Suicidal, threat to staff... and all critical care pts) @ -[No] - Lab Data Result diagrams: 09/21/23 11:36 09/21/23 11:36 Lab Results 09/21/23 09/21/23 09/21/23 Range/Units 11:36 11:36 11:36 WBC 13.6 H (3.8-10.6) k/uL RBC 4.94 (4.30-5.90) m/uL Hgb 15.4 (13.0-17.5) gm/dL Hct 45.3 (39.0-53.0) % MCV 91.6 (80.0-100.0) fL MCH 31.2 (25.0-35.0) pg MCHC 34.0 (31.0-37.0) g/dL RDW 12.8 (11.5-15.5) % Plt Count 242 (150-450) k/uL MPV 8.4 Neutrophils % 86 % Lymphocytes % 8 % Monocytes % 4 % Eosinophils % 2 % Basophils % 0 % Neutrophils # 11.6 H (1.3-7.7) k/uL Lymphocytes # 1.1 (1.0-4.8) k/uL Monocytes # 0.5 (0-1.0) k/uL Eosinophils # 0.2 (0-0.7) k/uL Basophils # 0.0 (0-0.2) k/uL Sodium 134 L (137-145) mmol/L Potassium 4.3 (3.5-5.1) mmol/L Chloride 100 (98-107) mmol/L Carbon Dioxide 28 (22-30) mmol/L Anion Gap 6 mmol/L BUN 19 (9-20) mg/dL Creatinine 0.49 L (0.66-1.25) mg/dL Est GFR (CKD-EPI)AfAm >90 (>60 ml/min/1.73 sqM) Est GFR (CKD-EPI)NonAf >90 (>60 ml/min/1.73 sqM) Glucose 104 H (74-99) mg/dL Calcium 9.0 (8.4-10.2) mg/dL Total Bilirubin 0.6 (0.2-1.3) mg/dL AST 26 (17-59) U/L ALT 26 (4-49) U/L Alkaline Phosphatase 76 (38-126) U/L Total Protein 6.3 (6.3-8.2) g/dL Albumin 3.5 (3.5-5.0) g/dL Lipase 217 (23-300) U/L Urine Color Yellow Urine Appearance Clear (Clear) Urine pH 6.0 (5.0-8.0) Ur Specific [place] 1.036 H (1.001-1.035) Urine Protein Trace H (Negative) Urine Glucose (UA) Negative (Negative) Urine Ketones 2+ H (Negative) Urine Blood Negative (Negative) Urine Nitrite Negative (Negative) Urine Bilirubin Negative (Negative) Urine Urobilinogen 2.0 (<2.0) mg/dL Ur Leukocyte Esterase Negative (Negative) - Radiology Data Radiology results: report reviewed, image reviewed Disposition Clinical Impression: Hiccups, Chronic hiccups, Vomiting Disposition: HOME SELF-CARE Condition: Good Instructions (If sedation given, give patient instructions): Hiccups (ED), GERD (Gastroesophageal Reflux Disease) (ED), Acute Nausea and Vomiting (ED), Acute Nausea and Vomiting (DC) Prescriptions: Sucralfate [Carafate] 1 gm PO TID 7 Days #210 ml Promethazine Suppository [Phenergan] 25 mg RECTAL BID #12 supp chlorproMAZINE [Thorazine] 25 mg PO TID 7 Days #21 tablet Is patient prescribed a controlled substance at d/c from ED?: No If prescribed controlled substance>3 days was MAPS reviewed?: No Referrals: Sebastián Merrill DO [Primary Care Provider] - 1-2 days Leila Payton MD [STAFF PHYSICIAN] - 1-2 days Time of Disposition: 15:40
[2023-09-21 11:42] LABS: Basophils % (A) 0 %; Eosinophils # (A) 0.2 k/uL (0-0.7); Eosinophils % (A) 2 %; HCT 45.3 % (39.0-53.0); HGB 15.4 gm/dL (13.0-17.5); Lymphocytes # (A) 1.1 k/uL (1.0-4.8); Lymphocytes % (A) 8 %; MCH 31.2 pg (25.0-35.0); MCV 91.6 fL (80.0-100.0); Mean Platelet Volume 8.4; Monocytes # (A) 0.5 k/uL (0-1.0); Monocytes % (A) 4 %; Neutrophils # (A) 11.6 k/uL (1.3-7.7); Neutrophils % (A) 86 %; Platelet Count 242 k/uL (150-450); RBC 4.94 m/uL (4.30-5.90); RDW 12.8 % (11.5-15.5); WBC 13.6 k/uL (3.8-10.6)
[2023-09-21] MEDS: SODIUM CHLORIDE 0.9% 1,000 ML IV STA (11:52)
[2023-09-21 11:53] LABS: ALT 26 U/L (4-49); AST 26 U/L (17-59); African American GFR (CKD) >90 (>60 ml/min/1.73 sqM); Albumin 3.5 g/dL (3.5-5.0); Alkaline Phosphatase 76 U/L (38-126); Anion Gap 6 mmol/L; Blood Urea Nitrogen 19 mg/dL (9-20); Carbon Dioxide 28 mmol/L (22-30); Chloride 100 mmol/L (98-107); Glucose 104 mg/dL (74-99); Non-African American GFR(CKD) >90 (>60 ml/min/1.73 sqM); Potassium 4.3 mmol/L (3.5-5.1); Sodium 134 mmol/L (137-145); Total Bilirubin 0.6 mg/dL (0.2-1.3); Total Protein 6.3 g/dL (6.3-8.2)
[2023-09-21] MEDS: chlorproMAZINE 25 MG/ML 2 ML AMP IM STA (11:54)
[2023-09-21] MEDS: GLUCAGON 1 MG/ML VIAL IVP STA (12:20)
[2023-09-21] MEDS: PANTOPRAZOLE 40 MG/10 ML VIAL IVP STA (12:20)
[2023-09-21 12:38] LABS: Appearance,Urine Clear (Clear); Bilirubin,Urine Negative (Negative); Blood,Urine Negative (Negative); Color,Urine Yellow; Glucose,Urine (UA) Negative (Negative); Ketones,Urine 2+ (Negative); Leukocyte Esterase,Urine Negative (Negative); Nitrite,Urine Negative (Negative); Protein,Urine Trace (Negative); Specific Gravity,Urine 1.036 (1.001-1.035)
--- NOTE | 2023-09-21 12:45 | XR ---
EXAMINATION TYPE: XR KUB DATE OF EXAM: 09/21/2023 Comparison: 08/16/2014 Clinical History: 43-year-old male constipation Findings: Lung bases are clear. Cholecystectomy clips. No evidence of free intraperitoneal air. No dilated small bowel. Oral contrast remains scattered throughout the colon extending distally to the rectum. Impression: Retained oral contrast material throughout the colon. No evidence for free air or bowel obstruction.
[2023-09-21 13:20] LABS: Lipase 217 U/L (23-300)
[2023-09-21 16:34] VITALS: BP 128/67; PULSE 82; TEMP 98.1
== END 2023-09-21 16:31 | disposition home or self-care (01) ==
LOC: EC 10:41
DX: R06.6 Hiccough (principal); R11.2 Nausea with vomiting, unspecified
CPT/HCPCS: 51798; 36415; 80053; 83690; 85025; 81003; 74018; 99284; 96374; 96375; 96361; 96372; 51702; J1610; J3230; C9113

== ENCOUNTER 2023-12-22 09:29 | Day surgery (SDC) | payer BC ==
[2023-12-19 14:54] VITALS: BMI 30.3
--- NOTE | 2023-12-22 09:17 | P.GSHP ---
History of Present Illness H&P Date: 12/22/23 Chief Complaint: Pilonidal cyst 43-year-old male known to our service. Patient with history of pilonidal abscess requiring incision and drainage. Subsequently the patient's wound has improved. Mostly healed at this time. He would like to proceed with surgical resection of the pilonidal cyst. Past Medical History Past Medical History: No Reported History History of Any Multi-Drug Resistant Organisms: None Reported Past Surgical History: Cholecystectomy, Orthopedic Surgery Additional Past Surgical History / Comment(s): ORAL SURGERY, LEFT FEMUR - MISSY. Past Anesthesia/Blood Transfusion Reactions: No Reported Reaction Past Psychological History: No Psychological Hx Reported Smoking Status: Never smoker Past Alcohol Use History: Occasional Past Drug Use History: None Reported - Past Family History Mother History Unknown: Yes Family Medical History: Thyroid Disorder Medications and Allergies Home Medications Medication Instructions Recorded Confirmed Type Pantoprazole [Protonix] 40 mg PO QAM 09/21/23 12/19/23 History Allergies Allergy/AdvReac Type Severity Reaction Status Date / Time No Known Allergies Allergy Verified 12/19/23 14:17 Surgical - Exam Physical exam: General: Well-developed, well-nourished HEENT: Normocephalic, sclerae nonicteric Abdomen: Nontender, nondistended Extremities: No edema Neuro: Alert and oriented Assessment and Plan (1) Pilonidal cyst Narrative/Plan: 43-year-old male with pilonidal cyst. Will proceed with resection and planned closure of the pilonidal cyst at this time. Risks of bleeding, infection, scarring, wound formation, leaving the wound open, poor healing, recurrence, postoperative nausea vomiting and recurrent hiccups. Patient understands and wishes to proceed. Status: Acute Code(s): L05.91 - PILONIDAL CYST WITHOUT ABSCESS SNOMED Code(s): 99002946
[~2023-12-22 09:29] MED LIST: HYDROmorphone 0.5 MG/0.5 ML SYRINGE IVP PRN
[2023-12-22] MEDS: LACTATED RINGERS 1,000 ML IV SCH (10:00)
[2023-12-22] MEDS: HEPARIN SODIUM,PORCINE 5,000 UNIT/ML 1 ML VIAL SQ PRN (10:11)
[2023-12-22] MEDS: ACETAMINOPHEN TAB 500 MG TAB PO PRN (10:11)
[2023-12-22] MEDS: DEXAMETHASONE SOD PHOSPHATE 4 MG/ML 1 ML VIAL IV ONE (10:11)
[2023-12-22] MEDS: ONDANSETRON 4 MG/2 ML VIAL IVP ONE (10:11)
[2023-12-22] MEDS ORDERED: MIDAZOLAM 2 MG/2 ML VIAL ONE (11:04)
[2023-12-22] MEDS ORDERED: PROPOFOL 10 MG/ML 20 ML VIAL IV ONE (11:04)
[2023-12-22] MEDS: metroNIDAZOLE-NS PMX 500 MG in SALINE 1 100ML.BAG IVPB PRN (11:30)
[2023-12-22] MEDS: BUPIVACAINE (PF) 0.25% 30 ML VIAL SQ ONE ×2 (11:39→12:00)
[2023-12-22] MEDS: LACTATED RINGERS 1,000 ML IV ONE (12:00)
[2023-12-22] MEDS ORDERED: traMADol 50 MG TAB PO STA (12:36)
--- NOTE | 2023-12-22 12:41 | P.OP ---
Date of Procedure: 12/22/23 Procedure(s) Performed: PREOPERATIVE DIAGNOSIS: Pilonidal cyst POSTOPERATIVE DIAGNOSIS: Same PROCEDURE: Pilonidal cystectomy SURGEON: [place] VALVERDEL: Minimal ANESTHESIA: Spinal and sedation COMPLICATIONS: None OPERATIVE PROCEDURE: Patient was placed prone on the operating table after spinal anesthesia was achieved. The gluteal crease was prepped and draped in usual sterile fashion after the patient was placed in the prone jackknife position. The patient had a 8 mm wound just left of the gluteal crease. A few small sinus openings were also present in the midline just inferior to that. An elliptical incision was made extending towards the left and immediately adjacent to the gluteal crease on the right-hand side. Subcutaneous tissues were divided using electrocautery. No tracking of the infection was noted outside of our dissection. Skin flap was raised to the right approximately 3-4 cm. The wound was then irrigated fully with saline. No bleeding was seen. The subcutaneous tissues were reapproximated using interrupted 2-0 Vicryl sutures. A 10 round drain was placed above the deeper closure layer. This exited from the left superior side and sutured to the skin using a 3-0 silk stitch. The dermal layer was then reapproximated using interrupted 3-0 Vicryl sutures. The skin was then closed using a running 3-0 Monocryl suture. The incision was off the midline to the left by a distance of approximately 1cm. Marcaine solution plain was utilized as local anesthesia. Skin glue was used along the length of the skin closure. A sterile dressing was applied at that time. DISPOSITION: Stable to recovery room
[2023-12-22 13:23] VITALS: TEMP 97.4
[2023-12-22 16:57] VITALS: RESP 18
[2023-12-22 20:01] VITALS: BP 136/78; PULSE 64
== END 2023-12-22 19:50 | disposition home or self-care (01) ==
LOC: OR 09:29
PROVIDERS: ATTEND Surgery
DX: L05.91 Pilonidal cyst without abscess (principal); F10.90 Alcohol use, unspecified, uncomplicated; Z90.49 Acquired absence of other specified parts of digestive tract; Z98.890 Other specified postprocedural states; Z83.49 Family history of other endocrine, nutritional and metabolic diseases
CPT/HCPCS: 88304; 11770; J2250; J1644; J1100; J0690; J2405; J2704; J1836; J0665

== ENCOUNTER 2024-11-09 13:23 | Emergency (ER) | payer BC ==
--- NOTE | 2024-11-09 14:29 | ED ---
URI HPI - General Chief Complaint: Upper Respiratory Infection Stated Complaint: pneumonia Time Seen by Provider: 11/09/24 13:50 Source: patient, RN notes reviewed Mode of arrival: ambulatory Limitations: no limitations - History of Present Illness Initial Comments: 44-year-old male presents emergency department with chief complaint of cough and congestion he states he has been sick over a week he is initially seen in urgent care was diagnosed with suspected pneumonia. Patient was placed on Augmentin Flonase Zyrtec and albuterol inhaler. Patient states that he still has a cough he states he is posttussive emesis. Denies any abdominal pain or diarrhea no current fevers denies chest pain other than when he takes a deep inspiration states it hurts his ribs. Patient denies any current neck pain or headache. - Related Data Home Medications Medication Instructions Recorded Confirmed Pantoprazole [Protonix] 40 mg PO QAM 09/21/23 12/22/23 Previous Rx's Medication Instructions Recorded traMADol HCl [Ultram] 50 mg PO Q6H PRN #6 tab 12/22/23 Azithromycin [Zithromax Z Pack] 0 tab PO DIRECTED #6 tab 11/09/24 Allergies Allergy/AdvReac Type Severity Reaction Status Date / Time No Known Allergies Allergy Verified 11/09/24 13:46 Review of Systems ROS Statement: Those systems with pertinent positive or pertinent negative responses have been documented in the HPI. ROS Other: All systems not noted in ROS Statement are negative. Past Medical History Past Medical History: Pneumonia History of Any Multi-Drug Resistant Organisms: None Reported Past Surgical History: Cholecystectomy, Orthopedic Surgery Additional Past Surgical History / Comment(s): ORAL SURGERY, LEFT FEMUR - MISSY. Past Anesthesia/Blood Transfusion Reactions: No Reported Reaction Past Psychological History: No Psychological Hx Reported Smoking Status: Never smoker Past Alcohol Use History: Occasional Past Drug Use History: None Reported - Past Family History Mother History Unknown: Yes Family Medical History: Thyroid Disorder General Exam Limitations: no limitations General appearance: alert, in no apparent distress Head exam: Present: atraumatic, normocephalic, normal inspection Eye exam: Present: normal appearance, PERRL, EOMI. Absent: scleral icterus, conjunctival injection, periorbital swelling ENT exam: Present: normal exam, normal oropharynx, mucous membranes moist Neck exam: Present: normal inspection, full ROM. Absent: tenderness, meningismus, lymphadenopathy Respiratory exam: Present: normal lung sounds bilaterally. Absent: respiratory distress, wheezes, rales, rhonchi, stridor Cardiovascular Exam: Present: regular rate, normal rhythm, normal heart sounds. Absent: systolic murmur, diastolic murmur, rubs, gallop, clicks Course Vital Signs 11/09/24 11/09/24 13:43 16:22 Temperature 98.0 F 98.9 F Pulse Rate 84 81 Respiratory 20 19 Rate Blood Pressure 146/78 127/90 O2 Sat by Pulse 95 97 Oximetry Medical Decision Making - Medical Decision Making Was pt. sent in by a medical professional or institution ([facility]STIE Pleitez, SUPPLY AIDE, urgent care, hospital, or care home...) When possible be specific @ -No Did you speak to anyone other than the patient for history (EMS, parent, family, police, friend...)? What history was obtained from this source @ -No Did you review nursing and triage notes (agree or disagree)? Why? @ -I reviewed and agree with nursing and triage notes Were old charts reviewed (outside hosp., previous admission, EMS record, old EKG, old radiological studies, urgent care reports/EKG's, care home records)? Report findings @ -No old charts were reviewed Differential Diagnosis (chest pain, altered mental status, abdominal pain women, abdominal pain men, vaginal bleeding, weakness, fever, dyspnea, syncope, headache, dizziness, GI bleed, back pain, seizure, CVA, palpatations, mental health, musculoskeletal)? @ -COVID 19, RSV, influenza, pneumonia, acute bronchitis, URI, this list is not all inclusive EKG interpreted by me (3pts min.). @ -None X-rays interpreted by me (1pt min.). @ -Chest x-ray shows no acute cardiopulmonary process. CT interpreted by me (1pt min.). @ -None done U/S interpreted by me (1pt. min.). @ -None done What testing was considered but not performed or refused? (CT, X-rays, U/S, labs)? Why? @ -None What meds were considered but not given or refused? Why? @ -None Did you discuss the management of the patient with other professionals (professionals i.e. KRISTIE Pleitez, SUPPLY AIDE, lab, RT, psych nurse, social sciences instructor, hl7 developer, teacher, preventive medicine officer, case manager specialist)? Give summary @ -No Was smoking cessation discussed for >3mins.? @ -No Was critical care preformed (if so, how long)? @ -No Were there social determinants of health that impacted care today? How? (Homelessness, low income, unemployed, alcoholism, drug addiction, transportation, low edu. Level, literacy, decrease access to med. care, assisted, rehab)? @ -No Was there de-escalation of care discussed even if they declined (Discuss DNR or withdrawal of care, Hospice)? DNR status @ -No What co-morbidities impacted this encounter? (DM, HTN, Smoking, COPD, CAD, Cancer, CVA, ARF, Chemo, Hep., AIDS, mental health diagnosis, sleep apnea, morbid obesity)? @ -None Was patient admitted / discharged? Hospital course, mention meds given and route, prescriptions, significant lab abnormalities, going to OR and other pert inent info. @ -[Discharged patient chest x-ray, viral swabs negative patient has acute tracheobronchitis discharged in stable condition return parameters isidra. Undiagnosed new problem with uncertain prognosis? @ -No Drug Therapy requiring intensive monitoring for toxicity (Heparin, Nitro, Insulin, Cardizem)? @ -No Were any procedures done? @ -No Diagnosis/symptom? @ -Acute tracheobronchitis Acute, or Chronic, or Acute on Chronic? @ -Acute Uncomplicated (without systemic symptoms) or Complicated (systemic symptoms)? @ -Complicated Side effects of treatment? @ -No Exacerbation, Progression, or Severe Exacerbation? @ -No Poses a threat to life or bodily function? How? (Chest pain, [place], [place], pneumonia, PE, COPD, DKA, ARF, appy, cholecystitis, CVA, Diverticulitis, Homicidal, Suicidal, threat to staff... and all critical care pts) @ -No - Lab Data Lab Results 11/09/24 Range/Units 14:13 Influenza Type A (PCR) Not Detected (Not Detectd) Influenza Type B (PCR) Not Detected (Not Detectd) RSV (PCR) Not Detected (Not Detectd) SARS-CoV-2 (PCR) Not Detected (Not Detectd) Disposition Clinical Impression: Tracheobronchitis Disposition: HOME SELF-CARE Condition: Stable Instructions (If sedation given, give patient instructions): Upper Respiratory Infection (ED) Additional Instructions: Please return to the Emergency Department if symptoms worsen or any other concerns. Prescriptions: Azithromycin [Zithromax Z Pack] 0 tab PO DIRECTED #6 tab Is patient prescribed a controlled substance at d/c from ED?: No Referrals: Sebastián Merrill DO [Primary Care Provider] - 1-2 days Time of Disposition: 16:14
--- NOTE | 2024-11-09 14:43 | XR ---
EXAMINATION TYPE: XR chest 2V DATE OF EXAM: 11/09/2024 2:26 PM COMPARISON: None. CLINICAL INDICATION: Male, 44 years old with history of fever, cough; [facility] TECHNIQUE: XR chest 2V Frontal and lateral views of the chest. FINDINGS: Lungs/Pleura: There is no evidence of pleural effusion, focal consolidation, or pneumothorax. Pulmonary vascularity: Unremarkable. Heart/mediastinum: Cardiomediastinal silhouette is unremarkable. Musculoskeletal: No acute osseous pathology. Other findings: None IMPRESSION: No acute cardiopulmonary disease/process. [facility], , 11/09/2024 2:40 PM
[2024-11-09 14:57] LABS: Influenza A Not Detected (Not Detectd); Influenza B Not Detected (Not Detectd); RSV Not Detected (Not Detectd)
[2024-11-09 16:24] VITALS: BP 127/90; PULSE 81; RESP 19; TEMP 98.9
== END 2024-11-09 16:25 | disposition home or self-care (01) ==
LOC: EC 13:23
DX: J40 Bronchitis, not specified as acute or chronic (principal)
CPT/HCPCS: 71046; 87636; 99283